=== PATIENT | male | born 1965 | race Caucasian/White ===

== ENCOUNTER 2018-01-12 11:00 | Emergency (ER) | payer OTHER ==
[2018-01-12 11:06] VITALS: RESP 18
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
[2018-01-12 12:15] LABS: Basophils % (A) 1 %; Eosinophils # (A) 0.4 k/uL (0-0.7); Eosinophils % (A) 7 %; HCT 50.5 % (39.0-53.0); HGB 17.3 gm/dL (13.0-17.5); Lymphocytes # (A) 1.5 k/uL (1.0-4.8); Lymphocytes % (A) 28 %; MCH 30.2 pg (25.0-35.0); MCHC 34.3 g/dL (31.0-37.0); MCV 88.1 fL (80.0-100.0); Mean Platelet Volume 6.9; Monocytes # (A) 0.4 k/uL (0-1.0); Monocytes % (A) 7 %; Neutrophils # (A) 2.9 k/uL (1.3-7.7); Neutrophils % (A) 55 %; Platelet Count 168 k/uL (150-450); RBC 5.73 m/uL (4.30-5.90); RDW 13.7 % (11.5-15.5); WBC 5.2 k/uL (3.8-10.6)
[2018-01-12 12:16] VITALS: BP 153/99; PULSE 63; TEMP 99
[2018-01-12 12:20] LABS: Appearance,Urine Clear (Clear); Bilirubin,Urine Negative (Negative); Blood,Urine Negative (Negative); Color,Urine Yellow; Glucose,Urine (UA) Negative (Negative); Ketones,Urine Negative (Negative); Leukocyte Esterase,Urine Negative (Negative); Nitrite,Urine Negative (Negative); PH, Urine 6.5 (5.0-8.0); Protein,Urine Negative (Negative); Specific Gravity,Urine 1.016 (1.001-1.035); Urobilinogen,Urine <2.0 mg/dL (<2.0)
[2018-01-12 12:22] LABS: ALT 121 U/L (21-72); AST 74 U/L (17-59); Albumin 4.1 g/dL (3.5-5.0); Alkaline Phosphatase 63 U/L (38-126); Amylase 64 U/L (30-110); Anion Gap 7 mmol/L; Blood Urea Nitrogen 19 mg/dL (9-20); Calcium 9.6 mg/dL (8.4-10.2); Carbon Dioxide 29 mmol/L (22-30); Chloride 104 mmol/L (98-107); Glucose 112 mg/dL (74-99); Lipase 203 U/L (23-300); Potassium 4.6 mmol/L (3.5-5.1); Sodium 140 mmol/L (137-145); Total Bilirubin 0.5 mg/dL (0.2-1.3); Total Protein 7.5 g/dL (6.3-8.2)
== END 2018-01-12 12:13 | disposition home or self-care (01) ==
LOC: EC 11:00
DX: R10.32 Left lower quadrant pain (principal); Z98.890 Other specified postprocedural states
CPT/HCPCS: 36415; 80053; 81003; 82150; 83690; 85025; 99283

== ENCOUNTER 2018-01-28 12:12 | Day surgery (SDC) | payer OTHER ==
[2018-01-22 14:44] VITALS: BMI 31.3
[~2018-01-28 12:12] MED LIST: DEXAMETHASONE SOD PHOSPHATE 10 MG/ML 1 ML VIAL IV ONE; HEPARIN SODIUM,PORCINE 5,000 UNIT/ML 1 ML VIAL SQ ONE; HYDROmorphone 0.5 MG/0.5 ML SYRINGE IVP PRN; LIDOCAINE 1% 20 ML VIAL (10MG/ML) FOR IV START INTRADERMA PRN; ONDANSETRON 4 MG/2 ML VIAL IVP ONE; SCOPOLAMINE 1.5MG/72HR PATCH TRANSDERM ONE
--- NOTE | 2018-01-28 13:42 | P.GSHP ---
History of Present Illness H&P Date: 01/28/18 Chief Complaint: Recurrent right inguinal hernia This is a 52-year-old male who presents today for laparoscopic robotic-assisted repair of recurrent right inguinal hernia. Patient had a hernia repair performed many years ago at an outside institution. Patient developed a tender mass is right groin. He is found have a recurrent right inguinal hernia. Past Medical History Additional Past Medical History / Comment(s): hx migraines, HERNIA History of Any Multi-Drug Resistant Organisms: None Reported Past Surgical History: Back Surgery, Hernia Repair, Orthopedic Surgery, Tonsillectomy Additional Past Surgical History / Comment(s): ORIF RT ULNA Past Anesthesia/Blood Transfusion Reactions: No Reported Reaction Smoking Status: Never smoker - Past Family History Mother Family Medical History: Cancer Brother(s) Family Medical History: Cancer Medications and Allergies Home Medications Medication Instructions Recorded Confirmed Type Aspirin 325 mg PO DAILY 01/28/18 01/28/18 History Allergies Allergy/AdvReac Type Severity Reaction Status Date / Time No Known Allergies Allergy Verified 01/28/18 13:06 Surgical - Exam Vital Signs Temp Pulse Resp BP Pulse Ox 97.6 F 89 16 178/106 95 01/28/18 13:14 01/28/18 13:14 01/28/18 13:14 01/28/18 13:14 01/28/18 13:14 - General well developed, no distress - Eyes PERRL - ENT normal pinna - Neck no masses - Respiratory normal expansion - Cardiovascular Rhythm: regular - Abdomen Abdomen: soft, non tender Assessment and Plan Assessment: Recurrent right inguinal hernia. We'll perform laparoscopic robotic-assisted repair.
[2018-01-28] MEDS ORDERED: LIDOCAINE 1% 20 ML VIAL (10MG/ML) FOR IV START INTRADERMA ONE (13:48)
[2018-01-28] MEDS: LACTATED RINGERS 1,000 ML IV SCH (13:48)
[2018-01-28] MEDS ORDERED: MIDAZOLAM 2 MG/2 ML VIAL IV ONE ×2 (13:58)
[2018-01-28] MEDS ORDERED: fentaNYL (PF) 50 MCG/ML 2 ML AMP IV ONE (13:58)
[2018-01-28] MEDS ORDERED: PROPOFOL 10 MG/ML 20 ML VIAL IV ONE (14:26)
[2018-01-28] MEDS: ceFAZolin IN SWFI 2 GM/20 ML SYRINGE IVP ONE ×2 (14:26→14:47)
[2018-01-28] MEDS ORDERED: GLYCOPYRROLATE 0.2 MG/ML 2 ML VIAL ONE (14:26)
[2018-01-28] MEDS ORDERED: ROCURONIUM BROMIDE 10 MG/ML 10 ML VIAL IV ONE (14:26)
[2018-01-28] MEDS ORDERED: ROPIVACAINE 5 MG/ML 30 ML VIAL ONE (14:26)
[2018-01-28] MEDS ORDERED: LIDOCAINE 1% INJ 10MG/ML (20 ML MDV) ONE (14:26)
[2018-01-28] MEDS ORDERED: fentaNYL (PF) 50 MCG/ML 2 ML AMP ONE (14:26)
[2018-01-28] MEDS ORDERED: MIDAZOLAM 2 MG/2 ML VIAL ONE (14:26)
[2018-01-28] MEDS ORDERED: SUCCINYLCHOLINE CHLORIDE 100 MG/5 ML SYR IV ONE (14:26)
[2018-01-28] MEDS ORDERED: NEOSTIGMINE 1 MG/ML 10 ML VIAL ONE (14:26)
[2018-01-28] MEDS ORDERED: BUPIVACAIN-EPI 0.25%-1:200,000 30 ML VIAL SQ ONE (14:47)
[2018-01-28] MEDS ORDERED: LACTATED RINGERS 1,000 ML IV ONE (15:26)
[2018-01-28 15:43] VITALS: TEMP 97.7
--- NOTE | 2018-01-28 16:18 | P.ONQ ---
Anesthesiology Proc Note - PNB - Peripheral Nerve Block Performed Right Transversus Abdominis Single Time Out Performed: Yes Procedure Start Time: 13:58 Indication: Acute Post-Operative Pain, Analgesia Specifically requested for management of pain by DrAndreina: Prince Cunha Sedation Type: Sedate with meaningful contact maintained Preparation: Sterile Prep Position: Supine Catheter: None Needle Types: Other (see comment) (Pajunk) Needle Size: 50mm (2") Needle Gauge: 21 Technique: Ultrasound Injectate: 0.5% Ropivacaine (see comment for volume) (25 cc) Blood Aspirated: No Pain Paresthesia on Injection Noted: No Resistance on Injection: Normal Events: Uneventful and Well Tolerated
[2018-01-28] MEDS ORDERED: HYDROcodone/APAP 7.5-325MG 1 EACH TAB PO ONE (16:50)
[2018-01-28] MEDS ORDERED: ENALAPRILAT 1.25 MG/ML 1 ML VIAL IVP ONE (16:54)
[2018-01-28] MEDS ORDERED: HYDROcodone/APAP 5-325MG 1 EACH TAB PO ONE (17:25)
[2018-01-28 17:27] VITALS: BP 146/95; PULSE 88; RESP 20
--- NOTE | 2018-01-28 17:41 | P.OP ---
Date of Procedure: 01/28/18 Preoperative Diagnosis: Recurrent right inguinal hernia Postoperative Diagnosis: Recurrent right inguinal hernia Procedure(s) Performed: Laparoscopic robotic-assisted repair of recurrent right inguinal hernia Excision of cord lipoma Anesthesia: BOB Surgeon: Prince Cunha Estimated Blood Loss (ml): 5 Pathology: other (Right cord lipoma) Condition: stable Disposition: PACU Description of Procedure: The patient was placed on the operating table in the supine position. The patient received general anesthesia. The patient's abdomen was prepped and draped in usual sterile fashion. The skin was anesthetized 1% local Xylocaine at the incision sites. Using an 11 blade a skin incision was made at the umbilicus. The fascia was grasped with a Maxwell and then the peritoneal cavity was entered with the Veress needle. Position of the Veress needle was confirmed with a positive drop test. After adequate insufflation a 5 mm trocar was placed into the peritoneal cavity. The Laparoscope was placed the peritoneal cavity. And a robotic 8 mm trocar was placed in the right lateral position and then another 8 mm robotic trochars placed in the left lateral position. The original 5 mm trocar was exchanged for a 12 mm trocar. The patient was placed in reverse Trendelenburg and then the patient was docked to the robot. The patient had a recurrent right inguinal hernia. Next the peritoneum over top of the hernia was incised and then using blunt and sharp dissection and electrocautery the hernia sac was dissected free from the floor of the inguinal canal. The hernia sac was completely reduced into the peritoneal cavity. A cord lipoma was dissected free from the spermatic cord. And then using the Pro front office agent mesh the hernia was repaired. The peritoneum was then sutured with 2-0V lock suture. The patient was then undocked the robot. The needle was withdrawn from the peritoneal cavity. The cord lipoma was removed from the peritoneal cavity. The umbilical trocar site was closed with 0 Ethibond suture. The skin was closed interrupted 3-0 Monocryl suture. Dermabond dressing was applied. Patient was sent to recovery in stable condition.
== END 2018-01-28 18:16 | disposition home or self-care (01) ==
LOC: OR 12:12
PROVIDERS: ATTEND Surgery
DX: K40.91 Unilateral inguinal hernia, without obstruction or gangrene, recurrent (principal); D17.6 Benign lipomatous neoplasm of spermatic cord; G43.909 Migraine, unspecified, not intractable, without status migrainosus; Z79.82 Long term (current) use of aspirin
CPT/HCPCS: 64486; 49651; C1781; J2250; J1644; J1100; J2710; J2405; J2001; J3010; J2795; J0330; J2704; J0690; 88304

== ENCOUNTER → 2018-02-23 | Outpatient (CLI) | payer OTHER ==
--- NOTE | 2018-02-23 19:57 | MR ---
EXAMINATION TYPE: MR knee RT wo con DATE OF EXAM: 02/23/2018 COMPARISON: None HISTORY: Right Knee pain x1 year, No Known Injury TECHNIQUE: Multiplanar, multisequence imaging of the right knee is performed without IV contrast. FINDINGS: MEDIAL MENISCUS: There is a grade 3 abnormal signal involving the posterior horn of the medial menisc us compatible with complex tear. LATERAL MENISCUS: Anterior and posterior horns are intact without tear. CRUCIATE LIGAMENTS: The anterior and posterior cruciate ligaments are intact and unremarkable. COLLATERAL LIGAMENTS: The medial collateral ligament and lateral collateral ligament complex are inta ct and unremarkable. EXTENSOR MECHANISM: Visualized quadriceps and patellar tendons are intact. EFFUSION: No significant suprapatellar joint effusion. POPLITEAL CYST: There is a 1 x 1 x 3.4 cm popliteal fossa cyst. TRICOMPARTMENT SPACES: There is narrowing of medial compartment knee joint compatible with osteoarthr itis. Grade II chondromalacia of the femoral articular cartilage. BONE MARROW SIGNAL: No focal abnormal marrow signal is appreciated. OTHER: No additional significant abnormality is appreciated. IMPRESSION: 1. Complex tear posterior horn medial meniscus. 2. Findings compatible with osteoarthritis. 3. There is a popliteal fossa cyst measuring 1 x 1 x 3.4 cm.
== END | disposition home or self-care (01) ==
LOC: RADMRIMAIN 16:46
PROVIDERS: ATTEND Orthopaedic Surgery
DX: S83.241A Other tear of medial meniscus, current injury, right knee, initial encounter (principal); M71.21 Synovial cyst of popliteal space [Baker], right knee

== ENCOUNTER → 2018-04-08 | Outpatient (CLI) | payer OTHER ==
[2018-04-08 13:26] LABS: Basophils % (A) 1 %; Eosinophils # (A) 0.3 k/uL (0-0.7); Eosinophils % (A) 6 %; HCT 50.1 % (39.0-53.0); HGB 17.8 gm/dL (13.0-17.5); Lymphocytes # (A) 1.5 k/uL (1.0-4.8); Lymphocytes % (A) 31 %; MCH 31.1 pg (25.0-35.0); MCHC 35.5 g/dL (31.0-37.0); MCV 87.8 fL (80.0-100.0); Mean Platelet Volume 6.7; Monocytes # (A) 0.4 k/uL (0-1.0); Monocytes % (A) 8 %; Neutrophils # (A) 2.6 k/uL (1.3-7.7); Neutrophils % (A) 52 %; Platelet Count 187 k/uL (150-450); RBC 5.71 m/uL (4.30-5.90); RDW 13.4 % (11.5-15.5)
[2018-04-08 13:32] LABS: Potassium 4.8 mmol/L (3.5-5.1)
== END | disposition home or self-care (01) ==
LOC: LABPAT 12:23
PROVIDERS: ATTEND Orthopaedic Surgery
DX: Z01.818 Encounter for other preprocedural examination (principal); Z01.812 Encounter for preprocedural laboratory examination; M23.91 Unspecified internal derangement of right knee
CPT/HCPCS: 36415; 80051; 85025; 93005

== ENCOUNTER 2018-04-09 11:43 | Day surgery (SDC) | payer OTHER ==
[2018-04-08 09:31] VITALS: BMI 29.9
--- NOTE | 2018-04-08 17:43 | HP ---
HISTORY AND PHYSICAL REASON FOR ADMISSION: Surgery scheduled for 04/09/2018 Richi Gale is a 52-year-old patient seen with progressive right knee pain. We discussed treatment options. He elected to proceed with arthroscopy. Consent was obtained. PAST MEDICAL HISTORY: Noncontributory. PAST SURGICAL HISTORY: Herniorrhaphy, lumbar spine surgery. DAILY MEDICATIONS: Ibuprofen. ALLERGIES: None reported. SOCIAL HISTORY: Denies tobacco use. PHYSICAL EXAMINATION: Evaluation of the right knee: Range of motion 0 to 120 degrees. Mild effusion. Tenderness along the medial joint line. Positive medial Star's. Ligaments stable. Hip rotation without pain. Distal neurovascular exam is intact. RADIOGRAPHS: Right knee radiographs revealed mild osteoarthritis. Right knee MRI revealed medial meniscal tear. IMPRESSION: Internal derangement, right knee with medial meniscal tear. PLAN: Right knee arthroscopy with partial meniscectomy and debridement. Surgery scheduled for 04/09/2018. MMODL / IJN: [id number] /
[~2018-04-09 11:43] MED LIST changes: -HEPARIN SODIUM,PORCINE 5,000 UNIT/ML 1 ML VIAL SQ ONE; -HYDROmorphone 0.5 MG/0.5 ML SYRINGE IVP PRN; +LACTATED RINGERS 1,000 ML IV SCH; +MIDAZOLAM (PF) 2 MG/2 ML VIAL IV PRN; +ceFAZolin IN SWFI 2 GM/20 ML SYRINGE IVP ONE
[2018-04-09] MEDS ORDERED: LIDOCAINE 1% INJ 10MG/ML (20 ML MDV) ONE (13:21)
[2018-04-09] MEDS ORDERED: fentaNYL (PF) 50 MCG/ML 2 ML AMP ONE (13:21)
[2018-04-09] MEDS ORDERED: MIDAZOLAM 2 MG/2 ML VIAL ONE (13:21)
[2018-04-09] MEDS ORDERED: PROPOFOL 10 MG/ML 20 ML VIAL IV ONE (13:21)
[2018-04-09] MEDS ORDERED: HYDROmorphone (PF) 1 MG/ML ONE (13:21)
[2018-04-09] MEDS ORDERED: BUPIVACAIN-EPI 0.25%-1:200,000 30 ML VIAL SQ ONE (13:50)
--- NOTE | 2018-04-09 14:16 | P.OP ---
Date of Procedure: 04/09/18 Preoperative Diagnosis: Internal derangement right knee Postoperative Diagnosis: 1. Tear medial meniscus right knee 2. Reactive synovitis medial, lateral and suprapatellar compartments right Procedure(s) Performed: 1. Arthroscopic partial medial meniscectomy right 2. Arthroscopic partial synovectomy medial, lateral and suprapatellar compartments right knee Anesthesia: BOB, local Surgeon: Gerardo Martin Estimated Blood Loss (ml): 5 Pathology: none sent Condition: stable Disposition: PACU Indications for Procedure: 52-year-old patient seen with progressive right knee pain. After treatment options were discussed, he elected to proceed with arthroscopy Operative Findings: See description of procedure Description of Procedure: Patient was taken to the operative suite. Patient underwent a general anesthetic by the department of anesthesia. Patient was given preoperative antibiotics. The right lower extremity was placed in a well-padded arthroscopic leg mathew. The right leg was prepped and draped in the normal sterile orthopedic fashion. A lateral parapatellar and suprapatellar incision was made. Trochars were inserted. Arthroscopy was initiated. Suprapatellar pouch revealed diffuse thick reactive synovitis. The patellofemoral joint appeared to articulate congruently. There was grade 1 chondromalacia of the patella with no osteochondral tears present. The scope was guided into the medial gutter. Was bodies or plica were identified The scope was then guided into the medial compartment. A medial parapatellar incision was made. Trocar inserted followed by probe. There was a bucket-handle medial meniscal tear present. There was always own tear. There was an area of grade 2 chondromalacia medial femoral condyle. There was thick reactive synovitis anteriorly. I performed a partial medial meniscectomy down to stable tissue. A chondroplasty of the medial femoral condyle was performed. I performed a partial synovectomy decompressing the reactive synovitis. The residual meniscus was stable. There was good decompression of the synovitis. Scope and probe were then guided into the intercondylar notch. Cruciates were identified , probed and found to be stable. The scope and probe were then guided into lateral compartment. The lateral meniscus was stable. There was chondromalacia.There was some reactive synovitis anteriorly. I introduced a motorized shaver and performed a partial synovectomy.There was good decompression of the synovitis.The scope was in guided back into the suprapatellar compartment. I introduced a motorized shaver into the suprapatellar compartment. I debrided some piecemeal fragments of meniscus I encountered. I performed a partial synovectomy decompressing the reactive synovitis. The shaver was removed. There was good decompression of the synovitis. I took one more look on the entire knee, no residual debris. Instruments were now removed from the joint. The joint was infiltrated with .25 % Marcaine. Steri-Strips were applied to the portal sites. Sterile dressings were applied. The patient was placed into a DEMETRIO hose. No tourniquet was utilized. The patient was awakened, transferred to a bed and taken to recovery stable satisfactory condition.
[2018-04-09 14:31] VITALS: TEMP 97
[2018-04-09] MEDS: HYDROmorphone 0.5 MG/0.5 ML SYRINGE IVP PRN ×2 (14:42→14:51)
[2018-04-09] MEDS ORDERED: LACTATED RINGERS 1,000 ML IV ONE (15:15)
[2018-04-09 15:22] VITALS: RESP 18
[2018-04-09 15:45] VITALS: BP 137/79; PULSE 78
== END 2018-04-09 16:11 | disposition home or self-care (01) ==
LOC: OR 11:43
PROVIDERS: ATTEND Orthopaedic Surgery
DX: S83.211A Bucket-handle tear of medial meniscus, current injury, right knee, initial encounter (principal); X58.XXXA Exposure to other specified factors, initial encounter; M65.861 Other synovitis and tenosynovitis, right lower leg; M22.41 Chondromalacia patellae, right knee; M94.261 Chondromalacia, right knee; M17.11 Unilateral primary osteoarthritis, right knee; Z79.1 Long term (current) use of non-steroidal anti-inflammatories (NSAID)
CPT/HCPCS: 29881; 29876; J2250; J1100; J2405; J2001; J3010; J1170 ×2; J2704; J0690

== ENCOUNTER 2019-08-04 09:13 | Emergency (ER) | payer OTHER ==
[2019-08-04 09:17] VITALS: RESP 18
--- NOTE | 2019-08-04 09:39 | ED ---
General Adult HPI - General Source: patient, RN notes reviewed Mode of arrival: ambulatory Limitations: no limitations <Norris Castaneda - Last Filed: 08/04/19 11:05> <Leanne Newell - Last Filed: 08/04/19 23:07> - General Chief complaint: ENT Stated complaint: Sore throat Time Seen by Provider: 08/04/19 09:18 - History of Present Illness Initial comments: 54-year-old male presents to the emergency department for a chief complaint of sore throat. Patient states he has had a sore throat for 3 days. States it is scratchy and painful to swallow. He denies difficulty swallowing. He denies any difficulty breathing. Patient denies cough or fever. Patient also complaining of about 5 episodes of diarrhea within the past 24 hours. States he is drinking plenty of fluids. He does not have nausea vomiting. He does not have abdominal pain. 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 He denies shortness of breath. He denies any known exposures to positive Covid cases.Patient has no other complaints at this time including shortness of breath, chest pain, abdominal pain, nausea or vomiting, headache, or visual changes. (Norris Castaneda) - Related Data Previous Rx's Medication Instructions Recorded HYDROcodone/APAP 7.5-325MG [[place] 1 each PO Q6HR PRN #21 tab 04/09/18 7.5] Allergies Allergy/AdvReac Type Severity Reaction Status Date / Time No Known Allergies Allergy Verified 08/04/19 09:17 Review of Systems ROS Other: All systems not noted in ROS Statement are negative. <Norris Castaneda - Last Filed: 08/04/19 11:05> ROS Other: All systems not noted in ROS Statement are negative. <Leanne Newell - Last Filed: 08/04/19 23:07> ROS Statement: Those systems with pertinent positive or pertinent negative responses have been documented in the HPI. Past Medical History Past Medical History: Osteoarthritis (OA) Additional Past Medical History / Comment(s): hx migraines, starting w/scratchy throat & slight cough History of Any Multi-Drug Resistant Organisms: None Reported Past Surgical History: Back Surgery, Hernia Repair, Orthopedic Surgery, Tonsillectomy Additional Past Surgical History / Comment(s): ORIF RT ULNA Past Anesthesia/Blood Transfusion Reactions: No Reported Reaction Past Psychological History: No Psychological Hx Reported Smoking Status: Never smoker Past Alcohol Use History: None Reported Past Drug Use History: None Reported - Past Family History Mother Family Medical History: Cancer Brother(s) Family Medical History: Cancer <Norris Castaneda P - Last Filed: 08/04/19 11:05> General Exam Limitations: no limitations General appearance: alert, in no apparent distress Head exam: Present: atraumatic, normocephalic, normal inspection Eye exam: Present: normal appearance, PERRL, EOMI. Absent: scleral icterus, conjunctival injection, periorbital swelling ENT exam: Present: normal exam, normal oropharynx (Uvula midline, no tonsillar exudates bilaterally), mucous membranes moist, TM's normal bilaterally, normal external ear exam Neck exam: Present: normal inspection, full ROM. Absent: tenderness, meningismus, lymphadenopathy Respiratory exam: Present: normal lung sounds bilaterally. Absent: respiratory distress, wheezes, rales, rhonchi, stridor Cardiovascular Exam: Present: regular rate, normal rhythm, normal heart sounds. Absent: systolic murmur, diastolic murmur, rubs, gallop, clicks GI/Abdominal exam: Present: soft, normal bowel sounds. Absent: distended, tenderness, guarding, rebound, rigid Neurological exam: Present: alert <Norris Castaneda P - Last Filed: 08/04/19 11:05> Course Vital Signs 08/04/19 08/04/19 09:15 11:09 Temperature 98.4 F 98 F Pulse Rate 83 81 Respiratory 18 18 Rate Blood Pressure 171/88 147/99 O2 Sat by Pulse 95 97 Oximetry Medical Decision Making <Norris Csataneda P - Last Filed: 08/04/19 11:05> <Leanne Newell - Last Filed: 08/04/19 23:07> - Medical Decision Making Vitals are stable. Patient is well appearing. Patient is complaining of a sore throat. Physical exam is unremarkable. Uvula is midline. No tonsillar exudates. Tonsillar pillars are symmetric, no evidence of abscess. Full range of motion of the neck. No neck stiffness. Strep is negative, likely viral in nature. Patient was given a dose of Decadron and viscous lidocaine. Covid pending. Patient also has had a few episodes of diarrhea since last night. However he is orally hydrating and does not have any abdominal pain fevers or nausea vomiting. At this time patient agrees to return for IV hydration and laboratory evaluation if he has a worsening in his diarrheal symptoms. Otherwise he will follow-up with primary care. (Norris Castaneda) I was available for consultation in the emergency department. The history and physical exam were done by the midlevel provider. I was consulted for this patients care. I reviewed the case with the midlevel provider and based on their presentation of the patient, I agree with the assessment, medical decision making and plan of care as documented. Chart was dictated using [employer] dictation software. Attempts were made to correct any dictation errors however some typographical errors may persist. Patient was seen during a [facility] due to the Covid-19 isac man. (Leanne Newell) - Lab Data Lab Results 08/04/19 Range/Units 09:51 Group A Strep Rapid Negative (Negative) Disposition Is patient prescribed a controlled substance at d/c from ED?: No Time of Disposition: 10:50 <Norris Castaneda - Last Filed: 08/04/19 11:05> <Leanne Newell - Last Filed: 08/04/19 23:07> Clinical Impression: Sore throat Disposition: HOME SELF-CARE Condition: Good Instructions (If sedation given, give patient instructions): Pharyngitis (ED) Additional Instructions: Please drink plenty of fluids. Take Tylenol for pain. Follow-up with primary care in 1-2 days for recheck. If symptoms are worsening, diarrhea is worsening, or you have any other concerning symptoms return to the emergency room for further evaluation. Referrals: Marii Bernal MD [Primary Care Provider] - 1-2 days
[2019-08-04] MEDS ORDERED: DEXAMETHASONE 4 MG TAB PO STA (10:49)
[2019-08-04] MEDS ORDERED: LIDOCAINE VISCOUS 2% 15 ML CUP MUCOUS MEM STA (10:49)
[2019-08-04 11:10] VITALS: BP 147/99; PULSE 81; TEMP 98
== END 2019-08-04 11:09 | disposition home or self-care (01) ==
LOC: EC 09:13
DX: J02.9 Acute pharyngitis, unspecified (principal); R19.7 Diarrhea, unspecified; Z20.828 Contact with and (suspected) exposure to other viral communicable diseases
CPT/HCPCS: 87081; 87430; 87635; 99283; J8540

== ENCOUNTER 2020-04-02 01:52 | Emergency (ER) | payer OTHER ==
[2020-04-02] MEDS ORDERED: LIDOCAINE 1%-EPI 1:100,000 20 ML VIAL SQ STA (01:58)
[2020-04-02] MEDS ORDERED: DIPH,PERTUS(ACELL)TETVAC-LF 0.5 ML VIAL IM ONE (01:59)
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
[2020-04-02 02:03] VITALS: BP 150/99; PULSE 101; RESP 16; TEMP 98.1
[2020-04-02] MEDS ORDERED: ACETAMINOPHEN TAB 325 MG TAB PO STA (02:14)
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
== END 2020-04-02 05:40 | disposition home or self-care (01) ==
LOC: EC 01:52
DX: S01.112A Laceration without foreign body of left eyelid and periocular area, initial encounter (principal); F10.129 Alcohol abuse with intoxication, unspecified; Y04.2XXA Assault by strike against or bumped into by another person, initial encounter; Y92.009 Unspecified place in unspecified non-institutional (private) residence as the place of occurrence of the external cause; Y90.9 Presence of alcohol in blood, level not specified
CPT/HCPCS: 12013; 70450; 70486; 72125; 82075; 99284

== ENCOUNTER 2021-06-07 14:05 | Emergency (ER) | payer OTHER ==
[2021-06-07 14:19] VITALS: TEMP 98.3
[2021-06-07 15:20] LABS: Basophils % (A) 0 %; Eosinophils # (A) 0.3 k/uL (0-0.7); Eosinophils % (A) 3 %; HCT 48.1 % (39.0-53.0); HGB 16.9 gm/dL (13.0-17.5); Lymphocytes # (A) 1.1 k/uL (1.0-4.8); Lymphocytes % (A) 11 %; MCH 30.7 pg (25.0-35.0); MCV 87.6 fL (80.0-100.0); Mean Platelet Volume 7.7; Monocytes # (A) 0.5 k/uL (0-1.0); Monocytes % (A) 5 %; Neutrophils # (A) 7.9 k/uL (1.3-7.7); Neutrophils % (A) 80 %; Platelet Count 146 k/uL (150-450); RBC 5.49 m/uL (4.30-5.90); RDW 13.7 % (11.5-15.5); WBC 9.8 k/uL (3.8-10.6)
[2021-06-07 15:40] LABS: Partial Thromboplastin Time 25.7 sec (22.0-30.0); Prothrombin Time 10.8 sec (9.0-12.0)
[2021-06-07 15:47] VITALS: RESP 18
--- NOTE | 2021-06-07 15:51 | XR ---
EXAMINATION TYPE: XR chest 2V DATE OF EXAM: 06/07/2021 COMPARISON: NONE HISTORY: Shortness of breath TECHNIQUE: Frontal and lateral views of the chest are obtained. FINDINGS: Scattered senescent parenchymal changes noted. Hyperinflation compatible with COPD. No evidence for infiltrate. No evidence for atelectasis. Heart size is stable. Mediastinal structures are stable and grossly unremarkable. No evidence for hilar prominence. Degenerative changes dorsal spine. IMPRESSION: 1. No evidence for acute pulmonary disease.
[2021-06-07 16:14] LABS: ALT 84 U/L (4-49); AST 56 U/L (17-59); African American GFR (CKD) >90 (>60 ml/min/1.73 sqM); Alkaline Phosphatase 80 U/L (38-126); Anion Gap 7 mmol/L; Blood Urea Nitrogen 19 mg/dL (9-20); Calcium 8.9 mg/dL (8.4-10.2); Carbon Dioxide 25 mmol/L (22-30); Chloride 102 mmol/L (98-107); Glucose 296 mg/dL (74-99); Magnesium 1.7 mg/dL (1.6-2.3); Non-African American GFR(CKD) >90 (>60 ml/min/1.73 sqM); Potassium 4.4 mmol/L (3.5-5.1); Sodium 134 mmol/L (137-145); Total Bilirubin 0.9 mg/dL (0.2-1.3); Total Protein 7.2 g/dL (6.3-8.2)
[2021-06-07 16:21] LABS: Appearance,Urine Clear (Clear); Bilirubin,Urine Negative (Negative); Blood,Urine Negative (Negative); Color,Urine Yellow; Glucose,Urine (UA) 4+ (Negative); Ketones,Urine Negative (Negative); Leukocyte Esterase,Urine Negative (Negative); Nitrite,Urine Negative (Negative); Protein,Urine Negative (Negative); Specific Gravity,Urine 1.026 (1.001-1.035); Urobilinogen,Urine <2.0 mg/dL (<2.0)
[2021-06-07] MEDS ORDERED: HYDROmorphone 1 MG/ML 1 ML SYRINGE IVP STA ×2 (16:41→18:48)
--- NOTE | 2021-06-07 18:02 | CT ---
EXAMINATION TYPE: CT angio thor/abd pel aorta CT DLP: 1673.5 mGycm, Automated exposure control for dose reduction was used. DATE OF EXAM: 06/07/2021 5:20 PM COMPARISON: None. CLINICAL INDICATION:Male, 56 years old with history of Right flank pain, chest and back pain TECHNIQUE: Dissection protocol: Multiple axial CT images of the chest, abdomen, and pelvis were obtai helga prior and to the administration of IV contrast. 3-D reformats and maximum intensity projection fo rmat were performed on a separate workstation. Then the abdomen was scanned after administration of 8 0 cc of Isovue 370 IV contrast. FINDINGS: ARTERIAL VASCULATURE: The thoracic aorta is normal in course and caliber. There is no evidence of aor tic dissection, aneurysm or acute aortic injury. Great arch vessels patent and normal in course and c aliber. Scattered atherosclerotic changes of the arterial vasculature present. PULMONARY ARTERIAL VASCULATURE: Normal caliber. VENOUS SYSTEM: Unremarkable. Lungs/pleura: The lung parenchyma appears unremarkable. Streaky atelectasis/scarring noted within th e lung bases. Heart: Within normal limits. There is aortic valve leaflet calcination as well as mitral valve leafle t calcifications. Mediastinum: No gross evidence of adenopathy. Lower Neck: No significant findings. Soft tissues: Mild gynecomastia changes bilaterally. Abdomen: Liver: Diffuse low-attenuation to the liver parenchyma. Gallbladder and Bile ducts: Unremarkable. Pancreas: Unremarkable. Spleen: Unremarkable. Adrenal glands: Large fat-containing lesion centered around the inferior margin of the liver near the right adrenal gland. Surrounding this fat containing lesion ill-defined retroperitoneal presumably b lood products. Inside the lesion are suspected serpiginous vessels which may represent internal hemor rhage. Additionally high density hemorrhage is identified surrounding this lesion. This appears disti nctly separate from the right kidney. The lesion measures roughly 12.5 x 11.5 x 12.9 cm. (CC, TV, AP) The left adrenal gland is normal. Kidneys and Ureters: No hydronephrosis. Stomach and Bowel: Few scattered colonic diverticula present. No evidence of bowel obstruction. Peritoneum: No evidence of pneumoperitoneum, free fluid, or adenopathy. Bladder: Unremarkable. Reproductive: Prostate gland is enlarged measuring up to 50 mm in transverse dimension. Abdominal wall/soft tissues: Left fat filled inguinal hernia. Hernia repair changes noted in the ante rior low abdominal wall. Musculoskeletal: The osseous structures appear intact. Multilevel disc degeneration changes are prese nt throughout the spine. Changes are worse at L3-L4. Findings communicated to Dr. Donnie Kumar on 06/07/2021 5:[address] Donnie Garcia. IMPRESSION: 1. No evidence for thoracic aortic dissection. 2. 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 Interventional radio logy consultation is recommended. 3. Hepatic steatosis. 4. Colonic diverticulosis.
--- NOTE | 2021-06-07 18:06 | ED ---
General Adult HPI - General Chief complaint: Chest Pain Stated complaint: BRADY/Rt Side Pain Time Seen by Provider: 06/07/21 15:08 Source: patient, RN notes reviewed, old records reviewed Mode of arrival: wheelchair Limitations: no limitations - History of Present Illness Initial comments: 56-year-old male presenting with abdominal pain, and upper chest pain. Symptoms began this morning. He denies injury. Denies vomiting. Denies fever. He denies dysuria or hematuria. He states the pain is in his right low back and right lower abdomen. He denies any chronic medical problems. He states he takes an aspirin 81 mg daily no other current medications. - Related Data Home Medications Medication Instructions Recorded Confirmed Aspirin [[place] Aspirin EC] 81 mg PO DAILY 06/07/21 06/07/21 Allergies Allergy/AdvReac Type Severity Reaction Status Date / Time No Known Allergies Allergy Verified 06/07/21 15:56 Review of Systems ROS Statement: Those systems with pertinent positive or pertinent negative responses have been documented in the HPI. ROS Other: All systems not noted in ROS Statement are negative. Past Medical History Past Medical History: Osteoarthritis (OA) Additional Past Medical History / Comment(s): hx migraines, starting w/scratchy throat & slight cough History of Any Multi-Drug Resistant Organisms: None Reported Past Surgical History: Back Surgery, Hernia Repair, Orthopedic Surgery, Tonsillectomy Additional Past Surgical History / Comment(s): ORIF RT ULNA Past Anesthesia/Blood Transfusion Reactions: No Reported Reaction Past Psychological History: No Psychological Hx Reported Smoking Status: Never smoker Past Alcohol Use History: Occasional Past Drug Use History: None Reported - Past Family History Mother Family Medical History: Cancer Brother(s) Family Medical History: Cancer General Exam Limitations: no limitations General appearance: alert, in no apparent distress Head exam: Present: atraumatic, normocephalic Eye exam: Present: normal appearance, PERRL ENT exam: Present: normal exam Neck exam: Present: normal inspection. Absent: tenderness, meningismus Respiratory exam: Present: normal lung sounds bilaterally. Absent: respiratory distress, wheezes Cardiovascular Exam: Present: regular rate, normal rhythm GI/Abdominal exam: Present: soft, distended, tenderness (Right lower quadrant) Extremities exam: Present: normal inspection, normal capillary refill, other (Pedal pulses are 2+ and symmetric, radial pulses are 2+ and symmetric). Absent: calf tenderness Neurological exam: Present: alert, oriented X3, CN II-XII intact. Absent: motor sensory deficit Psychiatric exam: Present: normal affect, normal mood Skin exam: Present: warm, dry, intact. Absent: cyanosis, diaphoretic Course Vital Signs 06/07/21 06/07/21 06/07/21 14:16 14:39 15:00 Temperature 98.3 F Pulse Rate 86 72 74 Respiratory 20 18 18 Rate Blood Pressure 147/88 166/99 O2 Sat by Pulse 97 94 L 94 L Oximetry 06/07/21 06/07/21 06/07/21 15:30 16:00 16:30 Temperature Pulse Rate 75 67 70 Respiratory 18 18 18 Rate Blood Pressure 159/98 154/76 166/98 O2 Sat by Pulse 96 96 95 Oximetry 06/07/21 06/07/21 06/07/21 17:00 17:30 18:49 Temperature Pulse Rate 74 84 Respiratory 18 18 Rate Blood Pressure 166/99 144/97 140/103 O2 Sat by Pulse 96 95 Oximetry - Reevaluation(s) Reevaluation #1: 06/07/21 18:34 Patient resting comfortably, vital signs stable. Awaiting transfer. EKG Findings - EKG Comments: EKG Findings:: EKG: Sinus rhythm rate of 72, IA interval 164, QRS duration 93, QTC 380. No ST segment elevation. Medical Decision Making - Medical Decision Making 56-year-old male presenting with chief complaint of abdominal pain. This does radiate to his right shoulder and right flank. He is tender on exam. His initial vitals are stable. Workup is initiated. EKG is sinus rhythm without ischemic changes. Chest x-ray is clear. He has a normal CBC was stable hemoglobin. Normal electrolytes, he does have an elevated blood glucose at 296. CT angiography of the chest abdomen pelvis is performed. This shows a large fluid accumulation in the right retroperitoneal space adjacent to the liver and kidney. Radiology believes this is a adrenal angiomyolipoma with retroperitoneal hemorrhage. I did discuss this with general surgery Dr. Olsen who recommends transfer for higher level of care and the likelihood of need for interventional radiology. [facility] and Dr[facility] Edge - Lab Data Result diagrams: 06/07/21 15:07 06/07/21 15:58 Lab Results 06/07/21 06/07/21 06/07/21 Range/Units 15:07 15:07 15:24 WBC 9.8 (3.8-10.6) k/uL RBC 5.49 (4.30-5.90) m/uL Hgb 16.9 (13.0-17.5) gm/dL Hct 48.1 (39.0-53.0) % MCV 87.6 (80.0-100.0) fL MCH 30.7 (25.0-35.0) pg MCHC 35.0 (31.0-37.0) g/dL RDW 13.7 (11.5-15.5) % Plt Count 146 L (150-450) k/uL MPV 7.7 Neutrophils % 80 % Lymphocytes % 11 % Monocytes % 5 % Eosinophils % 3 % Basophils % 0 % Neutrophils # 7.9 H (1.3-7.7) k/uL Lymphocytes # 1.1 (1.0-4.8) k/uL Monocytes # 0.5 (0-1.0) k/uL Eosinophils # 0.3 (0-0.7) k/uL Basophils # 0.0 (0-0.2) k/uL PT 10.8 (9.0-12.0) sec INR 1.0 (<1.2) APTT 25.7 (22.0-30.0) sec D-Dimer 7.12 H (<0.60) mg/L FEU Sodium (137-145) mmol/L Potassium (3.5-5.1) mmol/L Chloride (98-107) mmol/L Carbon Dioxide (22-30) mmol/L Anion Gap mmol/L BUN (9-20) mg/dL Creatinine (0.66-1.25) mg/dL Est GFR (CKD-EPI)AfAm (>60 ml/min/1.73 sqM) Est GFR (CKD-EPI)NonAf (>60 ml/min/1.73 sqM) Glucose (74-99) mg/dL Calcium (8.4-10.2) mg/dL Magnesium (1.6-2.3) mg/dL Total Bilirubin (0.2-1.3) mg/dL AST (17-59) U/L ALT (4-49) U/L Alkaline Phosphatase (38-126) U/L Troponin I (0.000-0.034) ng/mL Total Protein (6.3-8.2) g/dL Albumin (3.5-5.0) g/dL Urine Color Urine Appearance (Clear) Urine pH (5.0-8.0) Ur Specific [place] (1.001-1.035) Urine Protein (Negative) Urine Glucose (UA) (Negative) Urine Ketones (Negative) Urine Blood (Negative) Urine Nitrite (Negative) Urine Bilirubin (Negative) Urine Urobilinogen (<2.0) mg/dL Ur Leukocyte Esterase (Negative) 06/07/21 06/07/21 06/07/21 Range/Units 15:58 15:58 16:05 WBC (3.8-10.6) k/uL RBC (4.30-5.90) m/uL Hgb (13.0-17.5) gm/dL Hct (39.0-53.0) % MCV (80.0-100.0) fL MCH (25.0-35.0) pg MCHC (31.0-37.0) g/dL RDW (11.5-15.5) % Plt Count (150-450) k/uL MPV Neutrophils % % Lymphocytes % % Monocytes % % Eosinophils % % Basophils % % Neutrophils # (1.3-7.7) k/uL Lymphocytes # (1.0-4.8) k/uL Monocytes # (0-1.0) k/uL Eosinophils # (0-0.7) k/uL Basophils # (0-0.2) k/uL PT (9.0-12.0) sec INR (<1.2) APTT (22.0-30.0) sec D-Dimer (<0.60) mg/L FEU Sodium 134 L (137-145) mmol/L Potassium 4.4 (3.5-5.1) mmol/L Chloride 102 (98-107) mmol/L Carbon Dioxide 25 (22-30) mmol/L Anion Gap 7 mmol/L BUN 19 (9-20) mg/dL Creatinine 0.80 (0.66-1.25) mg/dL Est GFR (CKD-EPI)AfAm >90 (>60 ml/min/1.73 sqM) Est GFR (CKD-EPI)NonAf >90 (>60 ml/min/1.73 sqM) Glucose 296 H (74-99) mg/dL Calcium 8.9 (8.4-10.2) mg/dL Magnesium 1.7 (1.6-2.3) mg/dL Total Bilirubin 0.9 (0.2-1.3) mg/dL AST 56 (17-59) U/L ALT 84 H (4-49) U/L Alkaline Phosphatase 80 (38-126) U/L Troponin I <0.012 (0.000-0.034) ng/mL Total Protein 7.2 (6.3-8.2) g/dL Albumin 4.0 (3.5-5.0) g/dL Urine Color Yellow Urine Appearance Clear (Clear) Urine pH 5.0 (5.0-8.0) Ur Specific [place] 1.026 (1.001-1.035) Urine Protein Negative (Negative) Urine Glucose (UA) 4+ H (Negative) Urine Ketones Negative (Negative) Urine Blood Negative (Negative) Urine Nitrite Negative (Negative) Urine Bilirubin Negative (Negative) Urine Urobilinogen <2.0 (<2.0) mg/dL Ur Leukocyte Esterase Negative (Negative) Critical Care Time Critical Care Time: Yes Total Critical Care Time: 35 Disposition Clinical Impression: Retroperitoneal hemorrhage, Adrenal abnormality Disposition: OTHER INSTITUTION NOT DEFINED Condition: Serious Is patient prescribed a controlled substance at d/c from ED?: No Referrals: Marii Bernal MD [Primary Care Provider] - 1-2 days Time of Disposition: 18:13 - Out of Hospital Transfer - Req. Specs Out of Hospital Transfer - Requested Specifics: Other Emergency Center ([facility]
[2021-06-07 18:50] VITALS: BP 140/103; PULSE 84
== END 2021-06-07 20:00 | disposition other institution (70) ==
LOC: EC 14:05
DX: K66.1 Hemoperitoneum (principal); E27.9 Disorder of adrenal gland, unspecified; M19.90 Unspecified osteoarthritis, unspecified site; Z79.82 Long term (current) use of aspirin
CPT/HCPCS: 99291; 96374; 96376; 36415; 93005; 85379; 80053; 83735; 84484; 85025; 85610; 85730; 81003; 71046; 71275; 74174; J1170; Q9967

== ENCOUNTER 2021-08-05 07:28 | Emergency (ER) | payer OTHER ==
--- NOTE | 2021-08-05 07:47 | ED ---
General Adult HPI - General Chief complaint: Upper Respiratory Infection Stated complaint: Cough/fever/congestion Time Seen by Provider: 08/05/21 07:30 Source: patient, RN notes reviewed, old records reviewed Mode of arrival: ambulatory Limitations: no limitations - History of Present Illness Initial comments: This is a 56-year-old male who presents to the emergency department complaining of cough for the last 20 hours. Patient states he feels like his had a fever but he has not taken his temperature. Patient states he is only short of breath when he is coughing. Patient denies any chest pain or palpitations. Patient denies any sputum production. Patient denies any abdominal pain patient was vomiting diarrhea. Patient denies lightheadedness or dizziness. Patient states he just can't stop coughing. Patient states this typically happens at this time of year with the seasons. - Related Data Home Medications Medication Instructions Recorded Confirmed Aspirin [[place] Aspirin EC] 81 mg PO DAILY 06/07/21 06/07/21 Previous Rx's Medication Instructions Recorded Albuterol Inhaler [Ventolin Hfa 2 puff INHALATION RT-QID #18 gm 08/05/21 Inhaler] Azithromycin [Zithromax Tri-Kyle] 500 mg PO DAILY #3 tab 08/05/21 Allergies Allergy/AdvReac Type Severity Reaction Status Date / Time No Known Allergies Allergy Verified 08/05/21 07:35 Review of Systems ROS Statement: Those systems with pertinent positive or pertinent negative responses have been documented in the HPI. ROS Other: All systems not noted in ROS Statement are negative. Past Medical History Past Medical History: Diabetes Mellitus, Osteoarthritis (OA), Pulmonary Embolus (PE) Additional Past Medical History / Comment(s): hx migraines History of Any Multi-Drug Resistant Organisms: None Reported Past Surgical History: Back Surgery, Hernia Repair, Orthopedic Surgery, Tonsillectomy Additional Past Surgical History / Comment(s): ORIF RT ULNA Past Anesthesia/Blood Transfusion Reactions: No Reported Reaction Past Psychological History: No Psychological Hx Reported Smoking Status: Never smoker Past Alcohol Use History: Occasional Past Drug Use History: None Reported - Past Family History Mother Family Medical History: Cancer Brother(s) Family Medical History: Cancer General Exam - General Exam Comments Initial Comments: GENERAL: Patient is well-developed and well-nourished. Patient is nontoxic and well- hydrated and is in mild distress. Patient is coughing constantly while I was in the room. ENT: Neck is soft and supple. No significant lymphadenopathy is noted. Oropharynx is clear. Moist mucous membranes. Neck has full range of motion without eliciting any pain. EYES: The sclera were anicteric and conjunctiva were pink and moist. Extraocular movements were intact and pupils were equal round and reactive to light. Eyelids were unremarkable. PULMONARY: Unlabored respirations. Good breath sounds bilaterally. No audible rales rhonchi or wheezing was noted. CARDIOVASCULAR: There is a regular rate and rhythm without any murmurs gallops or rubs. ABDOMEN: Soft and nontender with normal bowel sounds. noted. There is no palpable pulsatile mass. SKIN: Skin is clear with no lesions or rashes and otherwise unremarkable. NEUROLOGIC: Patient is alert and oriented x3. Cranial nerves II through XII are grossly intact. Motor and sensory are also intact. Normal speech, volume and content. Symmetrical smile. MUSCULOSKELETAL: Normal extremities with adequate strength and full range of motion. N LYMPHATICS: No significant lymphadenopathy is noted PSYCHIATRIC: Normal psychiatric evaluation. Limitations: no limitations Course Vital Signs 08/05/21 08/05/21 08/05/21 07:31 07:48 08:59 Temperature 99.4 F Pulse Rate 92 100 Respiratory 18 22 20 Rate Blood Pressure 151/74 144/94 O2 Sat by Pulse 97 95 Oximetry 08/05/21 08/05/21 09:04 09:11 Temperature Pulse Rate 84 88 Respiratory Rate Blood Pressure O2 Sat by Pulse Oximetry Medical Decision Making - Medical Decision Making EKG shows sinus rhythm at 83 bpm AK interval is on a 46 dresses 88 QT interval 341 QTC is 381. Patient's EKG shows no ST segment elevation or depression. Chest x-ray shows no acute abnormality. Patient received Rocephin emergency department for bronchitis. Patient did rec eive an albuterol treatment in the emergency department felt much better. - Lab Data Result diagrams: 08/05/21 08:09 08/05/21 08:09 Lab Results 08/05/21 08/05/21 08/05/21 Range/Units 08:09 08:09 08:09 WBC 6.2 (3.8-10.6) k/uL RBC 5.54 (4.30-5.90) m/uL Hgb 16.4 (13.0-17.5) gm/dL Hct 49.6 (39.0-53.0) % MCV 89.6 (80.0-100.0) fL MCH 29.6 (25.0-35.0) pg MCHC 33.1 (31.0-37.0) g/dL RDW 14.3 (11.5-15.5) % Plt Count 195 (150-450) k/uL MPV 7.5 Neutrophils % 75 % Lymphocytes % 12 % Monocytes % 6 % Eosinophils % 5 % Basophils % 1 % Neutrophils # 4.7 (1.3-7.7) k/uL Lymphocytes # 0.8 L (1.0-4.8) k/uL Monocytes # 0.4 (0-1.0) k/uL Eosinophils # 0.3 (0-0.7) k/uL Basophils # 0.0 (0-0.2) k/uL PT 10.2 (9.0-12.0) sec INR 0.9 (<1.2) APTT 24.4 (22.0-30.0) sec Sodium 139 (137-145) mmol/L Potassium 4.6 (3.5-5.1) mmol/L Chloride 104 (98-107) mmol/L Carbon Dioxide 28 (22-30) mmol/L Anion Gap 7 mmol/L BUN 16 (9-20) mg/dL Creatinine 0.91 (0.66-1.25) mg/dL Est GFR (CKD-EPI)AfAm >90 (>60 ml/min/1.73 sqM) Est GFR (CKD-EPI)NonAf >90 (>60 ml/min/1.73 sqM) Glucose 143 H (74-99) mg/dL Plasma Lactic Acid Van (0.7-2.0) mmol/L Calcium 9.1 (8.4-10.2) mg/dL Magnesium 2.1 (1.6-2.3) mg/dL Total Bilirubin 0.9 (0.2-1.3) mg/dL AST 50 (17-59) U/L ALT 65 H (4-49) U/L Alkaline Phosphatase 81 (38-126) U/L Troponin I (0.000-0.034) ng/mL NT-Pro-B Natriuret Pep pg/mL Total Protein 7.5 (6.3-8.2) g/dL Albumin 4.4 (3.5-5.0) g/dL Coronavirus (PCR) (Not Detectd) 08/05/21 08/05/21 08/05/21 Range/Units 08:09 08:09 08:09 WBC (3.8-10.6) k/uL RBC (4.30-5.90) m/uL Hgb (13.0-17.5) gm/dL Hct (39.0-53.0) % MCV (80.0-100.0) fL MCH (25.0-35.0) pg MCHC (31.0-37.0) g/dL RDW (11.5-15.5) % Plt Count (150-450) k/uL MPV Neutrophils % % Lymphocytes % % Monocytes % % Eosinophils % % Basophils % % Neutrophils # (1.3-7.7) k/uL Lymphocytes # (1.0-4.8) k/uL Monocytes # (0-1.0) k/uL Eosinophils # (0-0.7) k/uL Basophils # (0-0.2) k/uL PT (9.0-12.0) sec INR (<1.2) APTT (22.0-30.0) sec Sodium (137-145) mmol/L Potassium (3.5-5.1) mmol/L Chloride (98-107) mmol/L Carbon Dioxide (22-30) mmol/L Anion Gap mmol/L BUN (9-20) mg/dL Creatinine (0.66-1.25) mg/dL Est GFR (CKD-EPI)AfAm (>60 ml/min/1.73 sqM) Est GFR (CKD-EPI)NonAf (>60 ml/min/1.73 sqM) Glucose (74-99) mg/dL Plasma Lactic Acid Van 1.0 (0.7-2.0) mmol/L Calcium (8.4-10.2) mg/dL Magnesium (1.6-2.3) mg/dL Total Bilirubin (0.2-1.3) mg/dL AST (17-59) U/L ALT (4-49) U/L Alkaline Phosphatase (38-126) U/L Troponin I <0.012 (0.000-0.034) ng/mL NT-Pro-B Natriuret Pep 23 pg/mL Total Protein (6.3-8.2) g/dL Albumin (3.5-5.0) g/dL Coronavirus (PCR) (Not Detectd) 08/05/21 Range/Units 08:09 WBC (3.8-10.6) k/uL RBC (4.30-5.90) m/uL Hgb (13.0-17.5) gm/dL Hct (39.0-53.0) % MCV (80.0-100.0) fL MCH (25.0-35.0) pg MCHC (31.0-37.0) g/dL RDW (11.5-15.5) % Plt Count (150-450) k/uL MPV Neutrophils % % Lymphocytes % % Monocytes % % Eosinophils % % Basophils % % Neutrophils # (1.3-7.7) k/uL Lymphocytes # (1.0-4.8) k/uL Monocytes # (0-1.0) k/uL Eosinophils # (0-0.7) k/uL Basophils # (0-0.2) k/uL PT (9.0-12.0) sec INR (<1.2) APTT (22.0-30.0) sec Sodium (137-145) mmol/L Potassium (3.5-5.1) mmol/L Chloride (98-107) mmol/L Carbon Dioxide (22-30) mmol/L Anion Gap mmol/L BUN (9-20) mg/dL Creatinine (0.66-1.25) mg/dL Est GFR (CKD-EPI)AfAm (>60 ml/min/1.73 sqM) Est GFR (CKD-EPI)NonAf (>60 ml/min/1.73 sqM) Glucose (74-99) mg/dL Plasma Lactic Acid Van (0.7-2.0) mmol/L Calcium (8.4-10.2) mg/dL Magnesium (1.6-2.3) mg/dL Total Bilirubin (0.2-1.3) mg/dL AST (17-59) U/L ALT (4-49) U/L Alkaline Phosphatase (38-126) U/L Troponin I (0.000-0.034) ng/mL NT-Pro-B Natriuret Pep pg/mL Total Protein (6.3-8.2) g/dL Albumin (3.5-5.0) g/dL Coronavirus (PCR) Not Detected (Not Detectd) Disposition Clinical Impression: Acute bronchitis with bronchospasm Disposition: HOME SELF-CARE Condition: Good Instructions (If sedation given, give patient instructions): Acute Bronchitis (ED), Bronchospasm (ED) Prescriptions: Albuterol Inhaler [Ventolin Hfa Inhaler] 2 puff INHALATION RT-QID #18 gm Azithromycin [Zithromax Tri-Kyle] 500 mg PO DAILY #3 tab Is patient prescribed a controlled substance at d/c from ED?: No Referrals: Marii Bernal MD [Primary Care Provider] - 1-2 days Time of Disposition: 09:35
[2021-08-05] MEDS ORDERED: IPRATROPIUM-ALBUTEROL 3 ML NEB INHALATION STA (07:48)
--- NOTE | 2021-08-05 08:41 | XR ---
EXAMINATION TYPE: XR chest 2V DATE OF EXAM: 08/05/2021 COMPARISON: 06/07/2021 HISTORY: 56-year-old male shortness of breath, difficulty breathing TECHNIQUE: Frontal and lateral views FINDINGS: Heart normal size. Aorta and pulmonary vasculature within normal limits. Mild interstitial prominence is unchanged. Slightly low lung volumes. Strandy atelectasis lower lungs. No consolidation or pleura l effusion. Embolization coils seen within the upper abdomen. IMPRESSION: Hypoventilatory changes with strandy bibasilar atelectasis. Otherwise, no acute process seen.
[2021-08-05 08:47] LABS: Basophils % (A) 1 %; Eosinophils # (A) 0.3 k/uL (0-0.7); Eosinophils % (A) 5 %; HCT 49.6 % (39.0-53.0); HGB 16.4 gm/dL (13.0-17.5); Lymphocytes # (A) 0.8 k/uL (1.0-4.8); Lymphocytes % (A) 12 %; MCH 29.6 pg (25.0-35.0); MCHC 33.1 g/dL (31.0-37.0); MCV 89.6 fL (80.0-100.0); Mean Platelet Volume 7.5; Monocytes # (A) 0.4 k/uL (0-1.0); Monocytes % (A) 6 %; Neutrophils # (A) 4.7 k/uL (1.3-7.7); Neutrophils % (A) 75 %; Platelet Count 195 k/uL (150-450); RBC 5.54 m/uL (4.30-5.90); RDW 14.3 % (11.5-15.5); WBC 6.2 k/uL (3.8-10.6)
[2021-08-05 08:53] LABS: ALT 65 U/L (4-49); AST 50 U/L (17-59); African American GFR (CKD) >90 (>60 ml/min/1.73 sqM); Albumin 4.4 g/dL (3.5-5.0); Alkaline Phosphatase 81 U/L (38-126); Anion Gap 7 mmol/L; Blood Urea Nitrogen 16 mg/dL (9-20); Calcium 9.1 mg/dL (8.4-10.2); Carbon Dioxide 28 mmol/L (22-30); Chloride 104 mmol/L (98-107); Glucose 143 mg/dL (74-99); Magnesium 2.1 mg/dL (1.6-2.3); Non-African American GFR(CKD) >90 (>60 ml/min/1.73 sqM); Potassium 4.6 mmol/L (3.5-5.1); Sodium 139 mmol/L (137-145); Total Bilirubin 0.9 mg/dL (0.2-1.3); Total Protein 7.5 g/dL (6.3-8.2)
[2021-08-05 09:00] LABS: INR 0.9 (<1.2); Partial Thromboplastin Time 24.4 sec (22.0-30.0); Prothrombin Time 10.2 sec (9.0-12.0)
[2021-08-05] MEDS ORDERED: cefTRIAXone IN SWFI 1,000 MG/10 ML SYRINGE IVP STA (09:56)
[2021-08-05 10:33] VITALS: BP 154/95; PULSE 100; RESP 18; TEMP 101.2
== END 2021-08-05 11:00 | disposition home or self-care (01) ==
LOC: EC 07:28
DX: J20.9 Acute bronchitis, unspecified (principal); Z20.822 Contact with and (suspected) exposure to COVID-19; E11.9 Type 2 diabetes mellitus without complications; Z79.82 Long term (current) use of aspirin
CPT/HCPCS: 36415; 94640; 93005; 83880; 80053; 83605; 83735; 84484; 85025; 85610; 85730; 87635; 71046; 99284; 96374; J0696

== ENCOUNTER → 2021-10-31 | Outpatient (CLI) | payer OTHER ==
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
== END | disposition home or self-care (01) ==
LOC: RADMRIMAIN 16:09
PROVIDERS: ATTEND Family Medicine
DX: R51.9 Headache, unspecified (principal); G89.29 Other chronic pain
CPT/HCPCS: 70551

== ENCOUNTER 2022-11-09 02:33 | Emergency (ER) | payer OTHER ==
[2022-11-09 02:52] VITALS: RESP 18; TEMP 974
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
[2022-11-09] MEDS ORDERED: ACETAMINOPHEN TAB 500 MG TAB PO STA (03:42)
[2022-11-09] MEDS ORDERED: KETOROLAC 15 MG/ML 1 ML VIAL IM STA (06:01)
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
[2022-11-09 06:31] VITALS: BP 125/83; PULSE 62
== END 2022-11-09 06:30 | disposition home or self-care (01) ==
LOC: EC 02:33
DX: S00.83XA Contusion of other part of head, initial encounter (principal); E11.9 Type 2 diabetes mellitus without complications; I10 Essential (primary) hypertension; M19.90 Unspecified osteoarthritis, unspecified site; Z79.82 Long term (current) use of aspirin; Y04.8XXA Assault by other bodily force, initial encounter
CPT/HCPCS: 70486; 99285; 96372; J1885

== ENCOUNTER → 2022-12-27 | Outpatient (CLI) | payer OTHER ==
--- NOTE | 2022-12-28 11:00 | CA ---
Transthoracic Echo Report Name: Richi Gale Age: 57 Gender: M : 1965 Exam Date: 12/27/2022 14:16 Exam Location: [facility] Ht (in): 66 Wt (lb): 185 Ordering Physician: Marii Bernal MD Attending/Referring Phys: Marii Bernal MD [place] Department Supervisor Sarah Jarrell RDCS Procedure CPT: Indications: R01.1 CARDIAC MURMUR, UNSPECIFIED Cardiac Hx: Technical Quality: Fair Contrast 1: Total Dose (mL): Contrast 2: Total Dose (mL): MEASUREMENTS (Male / Female) Normal Values 2D ECHO LV Diastolic Diameter PLAX 4.0 cm 4.2 - 5.9 / 3.9 - 5.3 cm LV Systolic Diameter PLAX 2.5 cm IVS Diastolic Thickness 1.4 cm 0.6 - 1.0 / 0.6 - 0.9 cm LVPW Diastolic Thickness 1.4 cm 0.6 - 1.0 / 0.6 - 0.9 cm LV Relative Wall Thickness 0.7 RV Internal Dim ED PLAX 3.6 cm LVOT Diameter 1.5 cm LA Volume 42.5 cm??? 18 - 58 / 22 - 52 cm??? LA Volume Index 21.2 cm???/m??? 16 - 28 cm???/m??? M-MODE Aortic Root Diameter MM 2.7 cm LA Systolic Diameter MM 3.6 cm LA Ao Ratio MM 1.3 AV Cusp Separation MM 1.4 cm DOPPLER AV Peak Velocity 232.0 cm/s AV Peak Gradient 21.5 mmHg AV Mean Velocity 167.7 cm/s AV Mean Gradient 12.4 mmHg AV Velocity Time Integral 47.9 cm AI Peak Velocity 379.3 cm/s AI Peak Gradient 57.5 mmHg AI Pressure Half Time 780.8 ms LVOT Peak Velocity 104.1 cm/s LVOT Peak Gradient 4.3 mmHg LVOT Velocity Time Integral 21.7 cm LVOT Stroke Volume 38.2 cm??? LVOT Stroke Volume Index 19.7 ml/m??? LVOT Cardiac Index 1601.3 cm???/min???m??? AV Area Cont Eq vti 0.8 cm??? AV Area Cont Eq pk 0.8 cm??? MV Area PHT 3.2 cm??? Mitral E Point Velocity 63.5 cm/s Mitral A Point Velocity 86.4 cm/s Mitral E to A Ratio 0.7 MV Deceleration Time 236.9 ms MV E' Velocity 5.3 cm/s Mitral E to MV E' Ratio 12.1 TR Peak Velocity 251.1 cm/s TR Peak Gradient 25.2 mmHg Right Ventricular Systolic Press 29.9 mmHg FINDINGS Left Ventricle Moderately increased left ventricular wall thickness. Left ventricular cavity size normal. Normal left ventricular systolic function with no obvious regional wall motion abnormalities. Left ventricular ejection fraction is estimated at 55-60 %. Right Ventricle Mild right ventricular dilatation. Right ventricular systolic pressure within normal limits. Right Atrium Normal right atrial size. Left Atrium Normal left atrial size. Mitral Valve Structurally normal mitral valve. Mild mitral annular calcification. Trace mitral regurgitation. Aortic Valve Trileaflet aortic valve. Mild aortic regurgitation. Mild aortic stenosis with a peak gradient of 22 mmHg and a mean gradient of 12 mmHg. Tricuspid Valve Structurally normal tricuspid valve. Mild tricuspid regurgitation. Pulmonic Valve Trace pulmonic regurgitation. Pericardium No thickening/calcification of the pericardium. Aorta Normal size aortic root and proximal ascending aorta. CONCLUSIONS Technically difficult study for interpretation Normal LV systolic function. Concentric left ventricular hypertrophy. The ejection fraction is 55-60% Poorly visualized aortic valve. Mild aortic stenosis was identified. Previewed by: Dr. Ramin Tarango MD (Electronically Signed) Final Date: 28 December 2022 10:59
== END | disposition home or self-care (01) ==
LOC: RADECHMAIN 14:05
PROVIDERS: ATTEND Family Medicine
DX: R01.1 Cardiac murmur, unspecified (principal)
CPT/HCPCS: 93306

== ENCOUNTER → 2023-10-03 | Outpatient (CLI) | payer OTHER ==
--- NOTE | 2023-10-03 19:28 | MR ---
EXAMINATION TYPE: MR brain wo/w con INDICATION: Patient age:Male; 58 years old; Reason for study: R51.9 PERSISTENT HEADACHES; PHH. COMPARISON: CT brain 05/04/2022, MRI brain 10/31/2021. TECHNIQUE: Multi planar, multi sequence imaging was performed through the brain before and after the uneventful administration of 8.5 mL of Gadavist intravenously. FINDINGS: The guzman-white junctions, ventricular system, basal cisterns appear unremarkable. Diffusion-weighted imaging shows no evidence of restricted diffusion to suggest acute/subacute infarct. Intracranial art erial flow voids are maintained. Midline structures show no abnormality. Stable focal 8 mm region of T2/FLAIR hyperintensity within the posterior medial aspect of the left frontal lobe subcortical white matter (series 701, image 28). No corresponding enhancement. Redemonstration of a small developmenta l venous anomaly within the left cerebellum. No evidence for cavernous malformation. No other abnorma l enhancement identified. The susceptibility weighted images do not reveal any evidence for micro-hem orrhage. The bone marrow signal is within normal limits. The globes are unremarkable. Minimal mucosal thicken ing of the left maxillary sinus with mild mucosal thickening of the inferior right maxillary sinus. M astoid air cells are clear. IMPRESSION: 1. No evidence of intracranial mass or acute/subacute infarct. Otherwise no significant change from p rior exam. 2. Stable nonenhancing T2/FLAIR hyperintense focus within the posterior left frontal lobe likely rela montrell to small vessel ischemic disease. 3. 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
== END | disposition home or self-care (01) ==
LOC: RADMRIMAIN 17:44
PROVIDERS: ATTEND Family Medicine
DX: R51.9 Headache, unspecified (principal)
CPT/HCPCS: 70553; A9585

== ENCOUNTER 2024-09-14 09:08 | Emergency (ER) | payer OTHER ==
--- NOTE | 2024-09-14 09:51 | ED ---
Extremity Problem HPI - General Source: patient, RN notes reviewed Mode of arrival: ambulatory Limitations: no limitations <Edilma Gustafson - Last Filed: 09/14/24 09:49> - General Source: patient, RN notes reviewed <Luz Spears - Last Filed: 09/14/24 14:20> - General Stated complaint: Right hip and leg pain Time Seen by Provider: 09/14/24 09:49 - History of Present Illness Initial comments: Note: 59-year-old male presented the ER for evaluation of right lower extremity pain. Patient states for the past 2 weeks he has been having pain to the right hip. He states it does travel distally. Patient has been taking prescribed gabapentin without relief of symptoms. No known injuries. (Edilma Gustafson) 59-year-old male presenting to the ER for right hip pain x 1 month. States he was recently diagnosed with sciatica. Describes a sharp, shooting intermittent pain that radiates from the right hip distally. He was given gabapentin by his PCP but reports it has not been helping. Denies trauma or injury. States he has a follow-up with an addictions recovery specialist and is going to start physical therapy in October for this issue. (Luz Spears) - Related Data Previous Rx's Medication Instructions Recorded HYDROcodone/APAP 7.5-325MG [[place] 1 tab PO Q6HR PRN 3 Days #12 tab 08/20/24 7.5-325] HYDROcodone/APAP 7.5-325MG [[place] 1 tab PO Q6HR PRN 3 Days #12 tab 08/20/24 7.5-325] predniSONE 50 mg PO DAILY #4 tab 08/20/24 predniSONE 50 mg PO DAILY #4 tab 08/20/24 Lidocaine 4% Patch 1 patch TOPICAL DAILY PRN 7 Days 09/14/24 #7 patch predniSONE [Deltasone] 40 mg PO DAILY 5 Days #10 tab 09/14/24 Allergies Allergy/AdvReac Type Severity Reaction Status Date / Time No Known Allergies Allergy Verified 09/14/24 10:10 Review of Systems ROS Other: All systems not noted in ROS Statement are negative. <Edilma Gustafson - Last Filed: 09/14/24 09:49> ROS Other: All systems not noted in ROS Statement are negative. <Luz Spears - Last Filed: 09/14/24 14:20> ROS Statement: Those systems with pertinent positive or pertinent negative responses have been documented in the HPI. Past Medical History Past Medical History: Diabetes Mellitus, GI Bleed, Hypertension, Osteoarthritis (OA), Pulmonary Embolus (PE) Additional Past Medical History / Comment(s): hx migraines History of Any Multi-Drug Resistant Organisms: None Reported Past Surgical History: Back Surgery Additional Past Surgical History / Comment(s): ORIF RT ULNA Past Anesthesia/Blood Transfusion Reactions: No Reported Reaction Additional Past Anesthesia/Blood Transfusion Reaction / Comment(s): no blood transfusion Past Psychological History: No Psychological Hx Reported Smoking Status: Never smoker - Past Family History Mother Family Medical History: Cancer Brother(s) Family Medical History: Cancer <Edilma Gustafson - Last Filed: 09/14/24 09:49> General Exam <Edilma Gustafson - Last Filed: 09/14/24 09:49> General appearance: alert, in no apparent distress Head exam: Present: atraumatic, normocephalic, normal inspection Eye exam: Present: normal appearance, PERRL, EOMI. Absent: scleral icterus, conjunctival injection, periorbital swelling GI/Abdominal exam: Present: soft, normal bowel sounds. Absent: distended, tenderness, guarding, rebound, rigid Right Hip exam: Present: normal inspection, full ROM. Absent: tenderness, swelling Upper Leg exam: Present: normal inspection, full ROM. Absent: tenderness, swelling Knee exam: Present: normal inspection, full ROM. Absent: tenderness, swelling Lower Leg exam: Present: normal inspection, full ROM. Absent: tenderness, swelling Neurovascular tendon exam: Present: no vascular compromise. Absent: pulse deficit, abnormal cap refill, motor deficit Neurological exam: Present: alert, oriented X3 Psychiatric exam: Present: normal affect, normal mood Skin exam: Present: warm, dry, intact, normal color. Absent: rash <Luz Spears - Last Filed: 09/14/24 14:20> - General Exam Comments Initial Comments: Visual Physical Exam Vital signs reviewed General: Well-appearing, nontoxic, no acute distress. Head: Normocephalic, atraumatic Eyes: PERRLA, EOMI ENT: Airway patent Chest: Nonlabored breathing Skin: No visual rash, normal skin tone Neuro: Alert and oriented 3 Musculoskeletal: No gross abnormalities (Edilma Gustafson) Course Vital Signs 09/14/24 10:06 Temperature 98.2 F Pulse Rate 78 Respiratory 22 Rate Blood Pressure 130/84 O2 Sat by Pulse 98 Oximetry Medical Decision Making <Edilma Gustafson - Last Filed: 09/14/24 09:49> <Graciela Spearsna - Last Filed: 09/14/24 14:20> - Medical Decision Making I performed the quick note portion of this chart. Electronically signed by Edilma uGstafson PA-C (Edilma Gustafson) Was pt. sent in by a medical professional or institution ([facility] Srinivasan, [employer], urgent care, hospital, or snf...) When possible be specific @ -No Did you speak to anyone other than the patient for history (EMS, parent, family, police, friend...)? What history was obtained from this source @ -No Did you review nursing and triage notes (agree or disagree)? Why? @ -I reviewed and agree with nursing and triage notes Were old charts reviewed (outside hosp., previous admission, EMS record, old EKG, old radiological studies, urgent care reports/EKG's, snf records)? Report findings @ -No old charts were reviewed Differential Diagnosis (chest pain, altered mental status, abdominal pain women, abdominal pain men, vaginal bleeding, weakness, fever, dyspnea, syncope, headache, dizziness, GI bleed, back pain, seizure, CVA, palpatations, mental health, musculoskeletal)? @ -Differential Musculoskeletal Muscular strain, contusion, ligament sprain, fracture, arthritis, septic arthritis, bursitis, cellulitis, muscle spasm, nerve compression, DVT, arterial occlusion, herpes zoster, electrolyte abnormality, tumor.... This is not meant to be in all inclusive list EKG interpreted by me (3pts min.). @ -None X-rays interpreted by me (1pt min.). @ -X-ray right femur reveals possible 1.1 cm osteochondral defect along medial femoral condyle otherwise no acute process CT interpreted by me (1pt min.). @ -None done U/S interpreted by me (1pt. min.). @ -None done What testing was considered but not performed or refused? (CT, X-rays, U/S, labs)? Why? @ -None What meds were considered but not given or refused? Why? @ -None Did you discuss the management of the patient with other professionals (professionals i.e. Dr., PA, [employer], lab, RT, psych nurse, social scientist, health safety instructor, teacher, correctional security officer, case finisher)? Give summary @ -No Was smoking cessation discussed for >3mins.? @ -No Was critical care preformed (if so, how long)? @ -No Were there social determinants of health that impacted care today? How? (Homelessness, low income, unemployed, alcoholism, drug addiction, transportation, low edu. Level, literacy, decrease access to med. care, custodial, rehab)? @ -No Was there de-escalation of care discussed even if they declined (Discuss DNR or withdrawal of care, Hospice)? DNR status @ -No What co-morbidities impacted this encounter? (DM, HTN, Smoking, COPD, CAD, Cancer, CVA, ARF, Chemo, Hep., AIDS, mental health diagnosis, sleep apnea, morbid obesity)? @ -None Was patient admitted / discharged? Hospital course, mention meds given and route, prescriptions, significant lab abnormalities, going to OR and other pertinent info. @ -Discharge. 59-year-old male with known history of sciatica presenting for right hip pain x 1 month. Neurovascularly intact. Able to ambulate. Provided with Tylenol, Solu-Medrol, and lidocaine patch. X-ray right femur reveals possible 1.1 cm osteochondral defect along medial femoral condyle otherwise no acute process. Upon reevaluation patient reports improvement of symptoms. Advised to follow-up for upcoming orthopedic appointment as well as PCP. Case was discussed with my ED attending Dr. Kumar Undiagnosed new problem with uncertain prognosis? @ -No Drug Therapy requiring intensive monitoring for toxicity (Heparin, Nitro, Insulin, Cardizem)? @ -No Were any procedures done? @ -No Diagnosis/symptom? @ -Sciatica right side Acute, or Chronic, or Acute on Chronic? @ -Acute Uncomplicated (without systemic symptoms) or Complicated (systemic symptoms)? @ -Uncomplicated Side effects of treatment? @ -No Exacerbation, Progression, or Severe Exacerbation? @ -No Poses a threat to life or bodily function? How? (Chest pain, [place], [place], pneumonia, PE, COPD, DKA, ARF, appy, cholecystitis, CVA, Diverticulitis, Homicidal, Suicidal, threat to staff... and all critical care pts) @ -No (Luz Spears) Disposition <Edilma Gustafson - Last Filed: 09/14/24 09:49> Is patient prescribed a controlled substance at d/c from ED?: No Time of Disposition: 14:19 <Luz Spears - Last Filed: 09/14/24 14:20> Clinical Impression: Sciatica of right side Disposition: HOME SELF-CARE Condition: Stable Instructions (If sedation given, give patient instructions): Sciatica (ED) Additional Instructions: Start prednisone tomorrow. Use lidocaine patches as needed for pain. Please return to the Emergency Department if symptoms worsen or any other concerns. Prescriptions: predniSONE [Deltasone] 40 mg PO DAILY 5 Days #10 tab Lidocaine 4% Patch 1 patch TOPICAL DAILY PRN 7 Days #7 patch PRN Reason: Pain Referrals: Marii Bernal MD [Primary Care Provider] - 1-2 days
[2024-09-14 10:10] VITALS: PULSE 78
--- NOTE | 2024-09-14 11:31 | XR ---
EXAMINATION TYPE: XR femur RT DATE OF EXAM: 09/14/2024 11:04 AM COMPARISON: 08/20/2024 CLINICAL INDICATION: Male, 59 years old with history of pain; PHH, pain TECHNIQUE: 2 views FINDINGS: Coils projecting of the pelvis relating to prior mesh repair. Mild degenerative change of t he pubic symphysis. Right hip shows preferred joint space. No acute fracture. Knee articulation gross ly intact although possible 1.1 cm osteochondral lesion along the weightbearing aspect of the medial femoral condyle on the lateral view. No significant soft tissue abnormality is radiographically appar ent. IMPRESSION: 1. Possible 1.1 cm osteochondral defect along the medial femoral condyle seen on the lateral view. 2. Otherwise, no acute osseous abnormality seen. [facility], , 09/14/2024 11:29 AM
[2024-09-14] MEDS: ACETAMINOPHEN TAB 500 MG TAB PO STA (12:41)
[2024-09-14] MEDS: LIDOCAINE 4% PATCH TOPICAL ONE (12:42)
[2024-09-14] MEDS: methylPREDNISolone SOD SUCCI 125 MG/2 ML VIAL IM ONE (12:44)
[2024-09-14 14:30] VITALS: BP 128/76; RESP 20; TEMP 98.1
== END 2024-09-14 14:28 | disposition home or self-care (01) ==
LOC: EC 09:08
DX: M54.31 Sciatica, right side (principal)
CPT/HCPCS: 73552; 99283; 96372; J2919

== ENCOUNTER 2024-09-23 07:44 | Emergency (ER) | payer OTHER ==
--- NOTE | 2024-09-23 08:27 | ED ---
General Adult HPI - General Chief complaint: Extremity Problem,Nontraumatic Stated complaint: Lower back pain Time Seen by Provider: 09/23/24 07:50 Source: patient, RN notes reviewed, old records reviewed Mode of arrival: ambulatory Limitations: no limitations - History of Present Illness Initial comments: This is a 59-year-old male who presents to the emergency department complaining of lower back pain. Patient states has been diagnosed with sciatica and yesterday he went to physical therapy has a manipulation done and he states that the pain is excruciating now he cannot lay down or sit down he can only stand and if he stands cannot stand on his left leg because standing on his right leg causes a sciatica down his right leg. Patient denies any numbness weakness. Patient denies any perineum numbness. Patient denies any urinary symptoms. Patient states he was given a 30-day supply of Neurontin but he took it for 15 days because he had nothing else for the pain. Patient denies any fever chills - Related Data Previous Rx's Medication Instructions Recorded HYDROcodone/APAP 7.5-325MG [[place] 1 tab PO Q6HR PRN 3 Days #12 tab 08/20/24 7.5-325] HYDROcodone/APAP 7.5-325MG [[place] 1 tab PO Q6HR PRN 3 Days #12 tab 08/20/24 7.5-325] predniSONE 50 mg PO DAILY #4 tab 08/20/24 predniSONE 50 mg PO DAILY #4 tab 08/20/24 Lidocaine 4% Patch 1 patch TOPICAL DAILY PRN 7 Days 09/14/24 #7 patch predniSONE [Deltasone] 40 mg PO DAILY 5 Days #10 tab 09/14/24 predniSONE [Deltasone] 40 mg PO DAILY #8 tab 09/23/24 Allergies Allergy/AdvReac Type Severity Reaction Status Date / Time No Known Allergies Allergy Verified 09/23/24 07:51 Review of Systems ROS Statement: Those systems with pertinent positive or pertinent negative responses have been documented in the HPI. ROS Other: All systems not noted in ROS Statement are negative. Past Medical History Past Medical History: Diabetes Mellitus, GI Bleed, Hypertension, Osteoarthritis (OA), Pulmonary Embolus (PE) Additional Past Medical History / Comment(s): hx migraines History of Any Multi-Drug Resistant Organisms: None Reported Past Surgical History: Back Surgery Additional Past Surgical History / Comment(s): ORIF RT ULNA Past Anesthesia/Blood Transfusion Reactions: No Reported Reaction Additional Past Anesthesia/Blood Transfusion Reaction / Comment(s): no blood transfusion Past Psychological History: No Psychological Hx Reported Smoking Status: Never smoker Past Alcohol Use History: Occasional Past Drug Use History: None Reported - Past Family History Mother Family Medical History: Cancer Brother(s) Family Medical History: Cancer General Exam - General Exam Comments Initial Comments: GENERAL: Patient is well-developed and well-nourished. Patient is nontoxic and well- hydrated and is in moderate distress. ENT: Neck is soft and supple. No significant lymphadenopathy is noted. Oropharynx is clear. Moist mucous membranes. Neck has full range of motion without eliciting any pain. EYES: The sclera were anicteric and conjunctiva were pink and moist. Extraocular movements were intact and pupils were equal round and reactive to light. Eyelids were unremarkable. SKIN: Skin is clear with no lesions or rashes and otherwise unremarkable. NEUROLOGIC: Patient is alert and oriented x3. Cranial nerves II through XII are grossly intact. Motor and sensory are also intact. Normal speech, volume and content. Symmetrical smile. Patient unable to lift his right leg without causing back pain radiating down his right leg PSYCHIATRIC: Normal psychiatric evaluation. Limitations: no limitations Course Vital Signs 09/23/24 07:49 Temperature 97.8 F Pulse Rate 77 Respiratory 20 Rate Blood Pressure 153/84 O2 Sat by Pulse 99 Oximetry Medical Decision Making - Medical Decision Making Was pt. sent in by a medical professional or institution (, PA, MACHINE [employer]IPPER [employer]IMMER, urgent care, hospital, or longterm...) When possible be specific @ -No Did you speak to anyone other than the patient for history (EMS, parent, family, police, friend...)? What history was obtained from this source @ -No Did you review nursing and triage notes (agree or disagree)? Why? @ -I reviewed and agree with nursing and triage notes Were old charts reviewed (outside hosp., previous admission, EMS record, old EKG, old radiological studies, urgent care reports/EKG's, longterm records)? Report findings @ -No old charts were reviewed Differential Diagnosis? @ -Differential Back Pain: Strain, zoster, cauda equina syndrome, epidural abscess, vertebral osteomyelitis, discitis, fracture, subluxation, disc herniation, DJD, spinal stenosis, dissection, AAA, pancreatitis, peptic ulcer disease, pyelonephritis, kidney stone, this is not meant to be an all-inclusive list. EKG interpreted by me (3pts min.). @ -As above X-rays interpreted by me (1pt min.). @ -None done CT interpreted by me (1pt min.). @ -None done U/S interpreted by me (1pt. min.). @ -None done What testing was considered but not performed or refused? (CT, X-rays, U/S, la bs)? Why? @ -None What meds were considered but not given or refused? Why? @ -None Did you discuss the management of the patient with other professionals (professionals i.e. , PA, MACHINE ZIPPER TRIMMER, lab, RT, psych nurse, licensed master social worker, box packer, teacher, truant officer, bilingual patient support caseworker)? Give summary @ -No Was smoking cessation discussed for >3mins.? @ -No Was critical care preformed (if so, how long)? @ -No Were there social determinants of health that impacted care today? How? (Homelessness, low income, unemployed, alcoholism, drug addiction, transportation, low edu. Level, literacy, decrease access to med. care, fdc, rehab)? @ -No Was there de-escalation of care discussed even if they declined (Discuss DNR or withdrawal of care, Hospice)? DNR status @ -No What co-morbidities impacted this encounter? (DM, HTN, Smoking, COPD, CAD, Cancer, CVA, ARF, Chemo, Hep., AIDS, mental health diagnosis, sleep apnea, morbid obesity)? @ -None Was patient admitted / discharged? Hospital course, mention meds given and route, prescriptions, significant lab abnormalities, going to OR and other pertinent info. @ -Patient received a shot of Toradol prednisone and Dilaudid. Patient was able to sit down outpatient was feeling better and he will follow-up with his primary medical care doctor. Undiagnosed new problem with uncertain prognosis? @ -No Drug Therapy requiring intensive monitoring for toxicity (Heparin, Nitro, Insulin, Cardizem)? @ -No Were any procedures done? @ -No Diagnosis/symptom? @ -Sciatic Acute, or Chronic, or Acute on Chronic? @ -Acute Uncomplicated (without systemic symptoms) or Complicated (systemic symptoms)? @ -Uncomplicated Side effects of treatment? @ -No Exacerbation, Progression, or Severe Exacerbation? @ -No Poses a threat to life or bodily function? How? (Chest pain, [place], [place], pneumonia, PE, COPD, DKA, ARF, appy, cholecystitis, CVA, Diverticulitis, Homicidal, Suicidal, threat to staff... and all critical care pts) @ -No Disposition Clinical Impression: Sciatica Disposition: HOME SELF-CARE Condition: Good Instructions (If sedation given, give patient instructions): Sciatica (ED) Prescriptions: predniSONE [Deltasone] 40 mg PO DAILY #8 tab Is patient prescribed a controlled substance at d/c from ED?: No Referrals: Marii Bernal MD [Primary Care Provider] - 1-2 days Time of Disposition: 09:08
[2024-09-23] MEDS: HYDROmorphone 1 MG/ML 1 ML SYRINGE IM STA (08:31)
[2024-09-23] MEDS: KETOROLAC 15 MG/ML 1 ML VIAL IM STA (08:31)
[2024-09-23] MEDS: predniSONE 20 MG TAB PO STA (08:32)
[2024-09-23] MEDS: ACET/COD 300 MG/30 MG STARTER PACK 6 TAB BTL PO STA (09:16)
[2024-09-23 09:22] VITALS: BP 145/79; PULSE 74; RESP 18; TEMP 97.9
== END 2024-09-23 09:24 | disposition home or self-care (01) ==
LOC: EC 07:44
DX: M54.31 Sciatica, right side (principal)
CPT/HCPCS: 99283; 96372 ×2; J1171; J1885; J7512

== ENCOUNTER 2024-09-30 10:15 | Emergency (ER) | payer OTHER ==
[2024-09-30 10:21] VITALS: RESP 20
[2024-09-30] MEDS: DEXAMETHASONE SOD PHOSPHATE 10 MG/ML 1 ML VIAL IM STA (11:19)
[2024-09-30] MEDS: KETOROLAC 15 MG/ML 1 ML VIAL IM STA (11:19)
[2024-09-30] MEDS: LIDOCAINE 4% PATCH TOPICAL ONE (11:22)
--- NOTE | 2024-09-30 11:26 | ED ---
Extremity Problem HPI - General Chief complaint: Extremity Problem,Nontraumatic Stated complaint: R hip pain Time Seen by Provider: 09/30/24 11:20 Source: patient, RN notes reviewed Mode of arrival: ambulatory Limitations: no limitations - History of Present Illness Initial comments: 59-year-old male presenting for right hip pain x 2 months. States he has been diagnosed with lumbar radiculopathy in the right leg. He is experiencing pain radiating from the right hip traveling distally. States he is having difficulty standing due to exacerbation of symptoms when he applies weight on the right side. Symptoms are exacerbated by moving to the sitting to standing position. He has been following with his PCP, undergoing current physical therapy (has completed 2 of 4 sessions), and has an MRI and orthopedic appointment scheduled for next month. States he just saw his PCP Dr. Bernal yesterday however still is not taking anything for pain. Denies bowel or bladder incontinence, saddle anesthesia, urinary retention, perineal numbness. No new injuries or traumas. - Related Data Previous Rx's Medication Instructions Recorded HYDROcodone/APAP 7.5-325MG [[place] 1 tab PO Q6HR PRN 3 Days #12 tab 08/20/24 7.5-325] HYDROcodone/APAP 7.5-325MG [[place] 1 tab PO Q6HR PRN 3 Days #12 tab 08/20/24 7.5-325] predniSONE 50 mg PO DAILY #4 tab 08/20/24 predniSONE 50 mg PO DAILY #4 tab 08/20/24 Lidocaine 4% Patch 1 patch TOPICAL DAILY PRN 7 Days 09/14/24 #7 patch predniSONE [Deltasone] 40 mg PO DAILY 5 Days #10 tab 09/14/24 predniSONE [Deltasone] 40 mg PO DAILY #8 tab 09/23/24 Allergies Allergy/AdvReac Type Severity Reaction Status Date / Time No Known Allergies Allergy Verified 09/23/24 07:51 Review of Systems ROS Statement: Those systems with pertinent positive or pertinent negative responses have been documented in the HPI. ROS Other: All systems not noted in ROS Statement are negative. Past Medical History Past Medical History: Diabetes Mellitus, GI Bleed, Hypertension, Osteoarthritis (OA), Pulmonary Embolus (PE) Additional Past Medical History / Comment(s): hx migraines History of Any Multi-Drug Resistant Organisms: None Reported Past Surgical History: Back Surgery Additional Past Surgical History / Comment(s): ORIF RT ULNA Past Anesthesia/Blood Transfusion Reactions: No Reported Reaction Additional Past Anesthesia/Blood Transfusion Reaction / Comment(s): no blood t ransfusion Past Psychological History: No Psychological Hx Reported Smoking Status: Never smoker Past Alcohol Use History: Occasional Past Drug Use History: None Reported - Past Family History Mother Family Medical History: Cancer Brother(s) Family Medical History: Cancer General Exam Limitations: no limitations General appearance: alert, in no apparent distress Head exam: Present: atraumatic, normocephalic, normal inspection Back exam: Present: normal inspection, full ROM, other (Full strength and range of motion of bilateral hips, no saddle anesthesia, full sensation and DP pulses bilaterally). Absent: tenderness, CVA tenderness (R), CVA tenderness (L), paraspinal tenderness, vertebral tenderness, rash noted Neurological exam: Present: alert, oriented X3 Psychiatric exam: Present: normal affect, normal mood Skin exam: Present: warm, dry, intact, normal color. Absent: rash Course Vital Signs 09/30/24 10:19 Temperature 98 F Pulse Rate 73 Respiratory 20 Rate Blood Pressure 147/90 O2 Sat by Pulse 97 Oximetry Medical Decision Making - Medical Decision Making Was pt. sent in by a medical professional or institution (, PA, EXTENSION COURSE COUNSELOR, urgent care, hospital, or intermediate...) When possible be specific @ -[No] Did you speak to anyone other than the patient for history (EMS, parent, family, police, friend...)? What history was obtained from this source @ -[No] Did you review nursing and triage notes (agree or disagree)? Why? @ -[I reviewed and agree with nursing and triage notes] Were old charts reviewed (outside hosp., previous admission, EMS record, old EKG, old radiological studies, urgent care reports/EKG's, intermediate records)? Report findings @ -Previous ER charts reviewed including x-ray of hip which show no acute osseous abnormality Differential Diagnosis (chest pain, altered mental status, abdominal pain women, abdominal pain men, vaginal bleeding, weakness, fever, dyspnea, syncope, headache, dizziness, GI bleed, back pain, seizure, CVA, palpatations, mental health, musculoskeletal)? @ -Differential Back Pain: Strain, zoster, cauda equina syndrome, epidural abscess, vertebral osteomyelitis, discitis, fracture, subluxation, disc herniation, DJD, spinal stenosis, dissection, AAA, pancreatitis, peptic ulcer disease, pyelonephritis, kidney stone, this is not meant to be an all-inclusive list. EKG interpreted by me (3pts min.). @ -None X-rays interpreted by me (1pt min.). @ -[None done] CT interpreted by me (1pt min.). @ -[None done] U/S interpreted by me (1pt. min.). @ -[None done] What testing was considered but not performed or refused? (CT, X-rays, U/S, labs)? Why? @ -[None] What meds were considered but not given or refused? Why? @ -[None] Did you discuss the management of the patient with other professionals (professionals i.e. , PA, EXTENSION COURSE COUNSELOR, lab, RT, psych nurse, social media campaign manager, ditch tender, teacher, staff weapons officer, caseworker protective services)? Give summary @ -[No] Was smoking cessation discussed for >3mins.? @ -[No] Was critical care preformed (if so, how long)? @ -[No] Were there social determinants of health that impacted care today? How? (Homelessness, low income, unemployed, alcoholism, drug addiction, transportation, low edu. Level, literacy, decrease access to med. care, senior living, rehab)? @ -[No] Was there de-escalation of care discussed even if they declined (Discuss DNR or withdrawal of care, Hospice)? DNR status @ -[No] What co-morbidities impacted this encounter? (DM, HTN, Smoking, COPD, CAD, Cancer, CVA, ARF, Chemo, Hep., AIDS, mental health diagnosis, sleep apnea, morbid obesity)? @ -[None] Was patient admitted / discharged? Hospital course, mention meds given and route, prescriptions, significant lab abnormalities, going to OR and other p ertinent info. @ -Discharge. 59-year-old male presenting for low back pain x 2 months. No acute injury or trauma. No red flag symptoms. Neurovascular intact. This is patient's fourth visit for same symptoms and has close PCP follow-up as well as undergoing physical therapy, has MRI and orthopedic appointment scheduled. Patient was provided with appropriate analgesics today and advised to follow-up with his PCP. Appropriate return precautions and supportive care discussed. Case was discussed with my ED attending Dr. Kumar. Undiagnosed new problem with uncertain prognosis? @ -[No] Drug Therapy requiring intensive monitoring for toxicity (Heparin, Nitro, Insulin, Cardizem)? @ -[No] Were any procedures done? @ -[No] Diagnosis/symptom? @ -Lumbar radiculopathy Acute, or Chronic, or Acute on Chronic? @ -Acute Uncomplicated (without systemic symptoms) or Complicated (systemic symptoms)? @ -Uncomplicated Side effects of treatment? @ -[No] Exacerbation, Progression, or Severe Exacerbation? @ -[No] Poses a threat to life or bodily function? How? (Chest pain, [place], [place], pneumonia, PE, COPD, DKA, ARF, appy, cholecystitis, CVA, Diverticulitis, Homicidal, Suicidal, threat to staff... and all critical care pts) @ -[No] Disposition Clinical Impression: Lumbar radiculopathy Disposition: HOME SELF-CARE Condition: Stable Instructions (If sedation given, give patient instructions): Lumbar Radiculopathy (ED) Additional Instructions: Please alternate Tylenol and ibuprofen at home to help your pain. Please continue following up with your PCP as well as continue attending your physical therapy sessions. Please return to the Emergency Department if symptoms worsen or any other concerns. Is patient prescribed a controlled substance at d/c from ED?: Yes When asked, does pt state using other controlled substances?: No If prescribed controlled substance>3 days was MAPS reviewed?: Prescribed <3 Days If opioid is for acute pain is fill amount 7 days or less?: Yes Referrals: Marii Bernal MD [Primary Care Provider] - 1-2 days Time of Disposition: 12:01
[2024-09-30] MEDS: ACET/COD 300 MG/30 MG STARTER PACK 6 TAB BTL PO STA (12:05)
[2024-09-30 12:07] VITALS: BP 123/80; PULSE 72; TEMP 98
== END 2024-09-30 12:12 | disposition home or self-care (01) ==
LOC: EC 10:15
DX: M54.16 Radiculopathy, lumbar region (principal)
CPT/HCPCS: 99283; 96372 ×2; J1100; J1885

== ENCOUNTER 2024-10-07 06:10 | Emergency (ER) | payer OTHER ==
--- NOTE | 2024-10-07 06:34 | ED ---
General Adult HPI - General Chief complaint: Extremity Injury, Lower Stated complaint: Hip Pain,Leg Pain Time Seen by Provider: 10/07/24 06:16 Source: patient, RN notes reviewed Mode of arrival: ambulatory Limitations: physical limitation - History of Present Illness Initial comments: 59-year-old male with a history of chronic lumbar back pain lumbar radiculopathy with sciatica presenting to the emergency department for complaints of right- sided hip pain with radiation down his posterior right leg that has been ongoing for approximate the past 6 weeks. Patient states that he finished his last physical therapy session yesterday in addition to taking the prescribed gabapentin by his primary care provider to still does not have relief of his pain. He states that he wakes up in middle the night with shooting pains. He states that he requested his PCP to send him in high-strength ibuprofen and Tylenol however reports that his physician did not send this medication for him. He denies loss of bladder or bowel control, saddle anesthesias, fevers or chills. Denies urinary symptoms. - Related Data Previous Rx's Medication Instructions Recorded HYDROcodone/APAP 7.5-325MG [[place] 1 tab PO Q6HR PRN 3 Days #12 tab 08/20/24 7.5-325] HYDROcodone/APAP 7.5-325MG [[place] 1 tab PO Q6HR PRN 3 Days #12 tab 08/20/24 7.5-325] predniSONE 50 mg PO DAILY #4 tab 08/20/24 predniSONE 50 mg PO DAILY #4 tab 08/20/24 Lidocaine 4% Patch 1 patch TOPICAL DAILY PRN 7 Days 09/14/24 #7 patch predniSONE [Deltasone] 40 mg PO DAILY 5 Days #10 tab 09/14/24 predniSONE [Deltasone] 40 mg PO DAILY #8 tab 09/23/24 Acetaminophen [Acetaminophen 8 hr] 650 mg PO Q8H #21 tab 10/07/24 Ibuprofen [Motrin] 800 mg PO Q6HR #30 tab 10/07/24 Allergies Allergy/AdvReac Type Severity Reaction Status Date / Time No Known Allergies Allergy Verified 10/07/24 06:18 Review of Systems ROS Statement: Those systems with pertinent positive or pertinent negative responses have been documented in the HPI. ROS Other: All systems not noted in ROS Statement are negative. Past Medical History Past Medical History: Diabetes Mellitus, GI Bleed, Hypertension, Osteoarthritis (OA), Pulmonary Embolus (PE) Additional Past Medical History / Comment(s): hx migraines History of Any Multi-Drug Resistant Organisms: None Reported Past Surgical History: Back Surgery Additional Past Surgical History / Comment(s): ORIF RT ULNA Past Anesthesia/Blood Transfusion Reactions: No Reported Reaction Additional Past Anesthesia/Blood Transfusion Reaction / Comment(s): no blood transfusion Past Psychological History: No Psychological Hx Reported Smoking Status: Never smoker Past Alcohol Use History: Occasional Past Drug Use History: None Reported - Past Family History Mother Family Medical History: Cancer Brother(s) Family Medical History: Cancer General Exam Limitations: physical limitation Neck exam: Present: normal inspection. Absent: tenderness, meningismus, lymphadenopathy Respiratory exam: Present: normal lung sounds bilaterally. Absent: respiratory distress, wheezes, rales, rhonchi, stridor Cardiovascular Exam: Present: regular rate, normal rhythm, normal heart sounds. Absent: systolic murmur, diastolic murmur, rubs, gallop, clicks GI/Abdominal exam: Present: soft, normal bowel sounds. Absent: distended, tenderness, guarding, rebound, rigid Right Hip exam: Present: normal inspection, tenderness. Absent: swelling, ecchymosis, deformity, dislocation Back exam: Present: normal inspection, tenderness (lumbar spine ) Neurological exam: Present: alert, oriented X3, CN II-XII intact Course Vital Signs 10/07/24 10/07/24 06:13 07:16 Temperature 97.6 F 98.1 F Pulse Rate 88 82 Respiratory 19 18 Rate Blood Pressure 161/97 149/89 O2 Sat by Pulse 99 99 Oximetry Medical Decision Making - Medical Decision Making Was pt. sent in by a medical professional or institution (, PA, GLASS SAGGER, urgent care, hospital, or custodial...) When possible be specific @ -No Did you speak to anyone other than the patient for history (EMS, parent, family, police, friend...)? What history was obtained from this source @ -No Did you review nursing and triage notes (agree or disagree)? Why? @ -I reviewed and agree with nursing and triage notes Were old charts reviewed (outside hosp., previous admission, EMS record, old EKG, old radiological studies, urgent care reports/EKG's, custodial records)? Report findings @ -No old charts were reviewed Differential Diagnosis (chest pain, altered mental status, abdominal pain women, abdominal pain men, vaginal bleeding, weakness, fever, dyspnea, syncope, headache, dizziness, GI bleed, back pain, seizure, CVA, palpatations, mental health, musculoskeletal)? @ -Differential Musculoskeletal Muscular strain, contusion, ligament sprain, fracture, arthritis, septic arthritis, bursitis, cellulitis, muscle spasm, nerve compression, DVT, arterial occlusion, herpes zoster, electrolyte abnormality, tumor.... This is not meant to be in all inclusive list EKG interpreted by me (3pts min.). @ -None X-rays interpreted by me (1pt min.). @ -None done CT interpreted by me (1pt min.). @ -None done U/S interpreted by me (1pt. min.). @ -None done What testing was considered but not performed or refused? (CT, X-rays, U/S, labs)? Why? @ -X-ray imaging was considered but deferred as patient had recent x-ray imaging that was unremarkable and follows up closely outpatient. What meds were considered but not given or refused? Why? @ -None Did you discuss the management of the patient with other professionals (professionals i.e. , PA, GLASS SAGGER, lab, RT, psych nurse, director of social work, button tufter, teacher, ordnance officer, counseling case manager)? Give summary @ -No Was smoking cessation discussed for >3mins.? @ -No Was critical care preformed (if so, how long)? @ -No Were there social determinants of health that impacted care today? How? (Homelessness, low income, unemployed, alcoholism, drug addiction, transportation, low edu. Level, literacy, decrease access to med. care, prison, rehab)? @ -No Was there de-escalation of care discussed even if they declined (Discuss DNR or withdrawal of care, Hospice)? DNR status @ -No What co-morbidities impacted this encounter? (DM, HTN, Smoking, COPD, CAD, Cancer, CVA, ARF, Chemo, Hep., AIDS, mental health diagnosis, sleep apnea, morbid obesity)? @ -None Was patient admitted / discharged? Hospital course, mention meds given and route, prescriptions, significant lab abnormalities, going to OR and other pertinent info. @ -Discharged. 59-year-old male presenting for recurrent visit for right hip pain with sciatica. No red flag findings on physical examination. Patient is provided with pain medication and a prescription for Tylenol and ibuprofen. Recommend follow-up with primary care provider. Case discussed with my attending Dr. Brooke Undiagnosed new problem with uncertain prognosis? @ -No Drug Therapy requiring intensive monitoring for toxicity (Heparin, Nitro, Insulin, Cardizem)? @ -No Were any procedures done? @ -No Diagnosis/symptom? @ -sciatica, lumbar radiculopathy Acute, or Chronic, or Acute on Chronic? @ -acute Uncomplicated (without systemic symptoms) or Complicated (systemic symptoms)? @ -uncomplicated Side effects of treatment? @ -No Exacerbation, Progression, or Severe Exacerbation? @ -No Poses a threat to life or bodily function? How? (Chest pain, [place], [place], pneumonia, PE, COPD, DKA, ARF, appy, cholecystitis, CVA, Diverticulitis, Homicidal, Suicidal, threat to staff... and all critical care pts) @ -No Disposition Clinical Impression: Sciatica of right side Disposition: HOME SELF-CARE Condition: Good Instructions (If sedation given, give patient instructions): Sciatica (ED) Additional Instructions: Please return to the Emergency Department if symptoms worsen or any other concerns. Prescriptions: Acetaminophen [Acetaminophen 8 hr] 650 mg PO Q8H #21 tab Ibuprofen [Motrin] 800 mg PO Q6HR #30 tab Is patient prescribed a controlled substance at d/c from ED?: No Referrals: Marii Bernal MD [Primary Care Provider] - 1-2 days Time of Disposition: 07:01
[2024-10-07] MEDS: KETOROLAC 15 MG/ML 1 ML VIAL IM STA (06:47)
[2024-10-07] MEDS: HYDROmorphone 0.5 MG/0.5 ML SYRINGE IM STA (06:48)
[2024-10-07 07:18] VITALS: BP 149/89; PULSE 82; RESP 18; TEMP 98.1
== END 2024-10-07 07:18 | disposition home or self-care (01) ==
LOC: EC 06:10
DX: M54.31 Sciatica, right side (principal)
CPT/HCPCS: 99283; 96372; J1885; J1171

== ENCOUNTER 2024-10-17 00:40 | Emergency (ER) | payer OTHER ==
--- NOTE | 2024-10-17 02:35 | ED ---
General Adult HPI - General Chief complaint: Back Pain/Injury Stated complaint: leg and tailbone pain Time Seen by Provider: 10/17/24 01:45 Source: patient, RN notes reviewed Mode of arrival: wheelchair Limitations: no limitations - History of Present Illness Initial comments: 59-year-old male presents to the emergency department for evaluation of right leg pain. Patient states that this has been ongoing issue for the past 6 weeks. He notes that it is worse with movement and he has difficulty sitting comfortably. He states that he has been following closely with his primary care provider for this. He reports having an MRI performed by his primary care provider. He is currently in physical therapy for this. He denies any loss of bowel or bladder function, saddle anesthesia. - Related Data Previous Rx's Medication Instructions Recorded HYDROcodone/APAP 7.5-325MG [[place] 1 tab PO Q6HR PRN 3 Days #12 tab 08/20/24 7.5-325] HYDROcodone/APAP 7.5-325MG [[place] 1 tab PO Q6HR PRN 3 Days #12 tab 08/20/24 7.5-325] predniSONE 50 mg PO DAILY #4 tab 08/20/24 predniSONE 50 mg PO DAILY #4 tab 08/20/24 Lidocaine 4% Patch 1 patch TOPICAL DAILY PRN 7 Days 09/14/24 #7 patch predniSONE [Deltasone] 40 mg PO DAILY 5 Days #10 tab 09/14/24 predniSONE [Deltasone] 40 mg PO DAILY #8 tab 09/23/24 Acetaminophen [Acetaminophen 8 hr] 650 mg PO Q8H #21 tab 10/07/24 Ibuprofen [Motrin] 800 mg PO Q6HR #30 tab 10/07/24 Allergies Allergy/AdvReac Type Severity Reaction Status Date / Time No Known Allergies Allergy Verified 10/17/24 00:42 Review of Systems ROS Statement: Those systems with pertinent positive or pertinent negative responses have been documented in the HPI. ROS Other: All systems not noted in ROS Statement are negative. Past Medical History Past Medical History: Diabetes Mellitus, GI Bleed, Hypertension, Osteoarthritis (OA), Pulmonary Embolus (PE) Additional Past Medical History / Comment(s): hx migraines History of Any Multi-Drug Resistant Organisms: None Reported Past Surgical History: Back Surgery, Hernia Repair Additional Past Surgical History / Comment(s): ORIF RT ULNA Past Anesthesia/Blood Transfusion Reactions: No Reported Reaction Additional Past Anesthesia/Blood Transfusion Reaction / Comment(s): no blood transfusion Past Psychological History: No Psychological Hx Reported Smoking Status: Never smoker Past Alcohol Use History: Daily Past Drug Use History: None Reported - Past Family History Mother Family Medical History: Cancer Brother(s) Family Medical History: Cancer General Exam Limitations: no limitations General appearance: alert, in no apparent distress Head exam: Present: atraumatic, normocephalic, normal inspection Eye exam: Present: normal appearance, PERRL, EOMI. Absent: scleral icterus, conjunctival injection, periorbital swelling ENT exam: Present: normal exam, mucous membranes moist Neck exam: Present: normal inspection. Absent: tenderness, meningismus, lymphadenopathy Respiratory exam: Present: normal lung sounds bilaterally. Absent: respiratory distress, wheezes, rales, rhonchi, stridor Cardiovascular Exam: Present: regular rate, normal rhythm, normal heart sounds. Absent: systolic murmur, diastolic murmur, rubs, gallop, clicks Extremities exam: Present: normal inspection, full ROM, normal capillary refill. Absent: tenderness, pedal edema, joint swelling, calf tenderness Neurological exam: Present: alert, oriented X3 Psychiatric exam: Present: normal affect, normal mood Skin exam: Present: warm, dry, intact, normal color. Absent: rash Course Vital Signs 10/17/24 00:42 Temperature 99.5 F Pulse Rate 105 H Respiratory 18 Rate Blood Pressure 113/71 O2 Sat by Pulse 97 Oximetry Medical Decision Making - Medical Decision Making Was pt. sent in by a medical professional or institution (, PA, BARREL BUILDER, urgent care, hospital, or detention...) When possible be specific @ -[No] Did you speak to anyone other than the patient for history (EMS, parent, family, police, friend...)? What history was obtained from this source @ -[No] Did you review nursing and triage notes (agree or disagree)? Why? @ -[I reviewed and agree with nursing and triage notes] Were old charts reviewed (outside hosp., previous admission, EMS record, old EKG, old radiological studies, urgent care reports/EKG's, detention records)? Report findings @ -[No old charts were reviewed] Differential Diagnosis (chest pain, altered mental status, abdominal pain women, abdominal pain men, vaginal bleeding, weakness, fever, dyspnea, syncope, headache, dizziness, GI bleed, back pain, seizure, CVA, palpatations, mental health, musculoskeletal)? @ -[not applicable] EKG interpreted by me (3pts min.). @ -[As above] X-rays interpreted by me (1pt min.). @ -[None done] CT interpreted by me (1pt min.). @ -[None done] U/S interpreted by me (1pt. min.). @ -[None done] What testing was considered but not performed or refused? (CT, X-rays, U/S, labs)? Why? @ -[None] What meds were considered but not given or refused? Why? @ -[None] Did you discuss the management of the patient with other professionals (professionals i.e. , PA, BARREL BUILDER, lab, RT, psych nurse, social sciences professor, gas inspector, teacher, executive officer, counter caser)? Give summary @ -[No] Was smoking cessation discussed for >3mins.? @ -[No] Was critical care preformed (if so, how long)? @ -[No] Were there social determinants of health that impacted care today? How? (Homelessness, low income, unemployed, alcoholism, drug addiction, transportation, low edu. Level, literacy, decrease access to med. care, care home, rehab)? @ -[No] Was there de-escalation of care discussed even if they declined (Discuss DNR or withdrawal of care, Hospice)? DNR status @ -[No] What co-morbidities impacted this encounter? (DM, HTN, Smoking, COPD, CAD, Cancer, CVA, ARF, Chemo, Hep., AIDS, mental health diagnosis, sleep apnea, morbid obesity)? @ -[None] Was patient admitted / discharged? Hospital course, mention meds given and route, prescriptions, significant lab abnormalities, going to OR and other pertinent info. @ -[hospital course] Undiagnosed new problem with uncertain prognosis? @ -[No] Drug Therapy requiring intensive monitoring for toxicity (Heparin, Nitro, Insulin, Cardizem)? @ -[No] Were any procedures done? @ -[No] Diagnosis/symptom? @ -[default] Acute, or Chronic, or Acute on Chronic? @ -[default] Uncomplicated (without systemic symptoms) or Complicated (systemic symptoms)? @ -[default] Side effects of treatment? @ -[No] Exacerbation, Progression, or Severe Exacerbation? @ -[No] Poses a threat to life or bodily function? How? (Chest pain, [place], [place], pneumonia, PE, COPD, DKA, ARF, appy, cholecystitis, CVA, Diverticulitis, Homicidal, Suicidal, threat to staff... and all critical care pts) @ -[No] Disposition Clinical Impression: Sciatica Disposition: HOME SELF-CARE Condition: Stable Instructions (If sedation given, give patient instructions): Sciatica (ED) Additional Instructions: Please follow up with orthopedics. Return to the emergency department for new or worsening symptoms. Is patient prescribed a controlled substance at d/c from ED?: No Referrals: Marii Bernal MD [Primary Care Provider] - 1-2 days
[2024-10-17] MEDS: HYDROmorphone 0.5 MG/0.5 ML SYRINGE IM STA (02:38)
[2024-10-17] MEDS: KETOROLAC 15 MG/ML 1 ML VIAL IM STA (02:38)
[2024-10-17] MEDS: LIDOCAINE 4% PATCH TOPICAL ONE (02:39)
[2024-10-17 03:04] VITALS: BP 121/80; PULSE 75; RESP 16; TEMP 98.9
== END 2024-10-17 03:04 | disposition home or self-care (01) ==
LOC: EC 00:40
DX: M54.30 Sciatica, unspecified side (principal)
CPT/HCPCS: 99283; 96372 ×2; J1885; J1171